=== PATIENT | female | born 1950 | race Caucasian/White ===

== ENCOUNTER → 2018-02-25 11:21 | Outpatient (CLI) | payer MEDICARE, OTHER, SELFPAY ==
--- NOTE | 2018-02-25 | DI.MG.S_ITS ---
BILATERAL DIGITAL SCREENING MAMMOGRAM 3D/2D WITH CAD: 02/25/2018 CLINICAL: Routine screening. Personal history of left breast cancer. Family history of breast cancer. Comparison is made to exams dated: 02/07/2017 mammogram, 02/05/2016 mammogram, and 01/13/2015 mammogram - [facility]. The tissue of both breasts is heterogeneously dense. This may lower the sensitivity of mammography. Current study was also evaluated with a Computer Aided Detection (CAD) system. There are benign post operative findings in the left breast. There also are benign calcifications in both breasts. No significant masses, calcifications, or other findings are seen in either breast. There has been no significant interval change. IMPRESSION: There is no mammographic evidence of malignancy. A 1 year screening mammogram is recommended. This exam was interpreted at Station ID: [id number]. NOTE: For mammograms, a report in lay terms will be sent to the patient. Approximately 15% of breast malignancies will not be visualized mammographically. In the management of a palpable breast mass, a negative mammogram must not discourage biopsy of a clinically suspicious lesion. Electronically Signed By: Karina lilly/barbara:02/25/2018 16:09:01 letter sent: Normal Exam ACR BI-RADS Category 2: Benign Finding(s) 3342F
== END ==
PROVIDERS: Family Provider Internal Medicine Hematology & Oncology; PCP Family Medicine; Visit Provider Family Medicine
DX: Z12.31 Encounter for screening mammogram for malignant neoplasm of breast (principal); Z85.3 Personal history of malignant neoplasm of breast; Z80.3 Family history of malignant neoplasm of breast
CPT/HCPCS: 77063; 77067

== ENCOUNTER → 2018-05-14 11:53 | Outpatient (CLI) | payer MEDICARE, OTHER, SELFPAY ==
--- NOTE | 2018-05-14 | DI.RAD.S_ITS ---
PROCEDURE: XR RIBS BI MIN 4V W CXR1V INDICATIONS: LUNG CANCER,BREAST CANCER,BACK PAIN TECHNIQUE: 4 views of the bilateral ribs were acquired, along with a single view chest. COMPARISON: None. FINDINGS: Surgical changes and devices: Surgical clips are seen in left axilla and in right infrahilar region. Bones and chest wall: No obvious displaced rib fractures or dislocations. No suspicious bony lesions. Overlying soft tissues appear unremarkable. Lungs and pleura: Elevation of right hemidiaphragm is seen with suggestion of small right pleural effusion and right basilar atelectasis. No gross pneumothorax. Mediastinum: Mediastinal contours appear normal. Heart size is normal. IMPRESSION: Elevation of right hemidiaphragm and small right pleural effusion. Post surgical changes in bilateral lower lung baez. No obvious rib deformity is seen. Dictated by: Jayce Wagner M.D. on 05/14/2018 12:32 Approved by: Jayce Wagner M.D. on 05/14/2018 at 12:36
== END ==
PROVIDERS: PCP Family Medicine; Visit Provider Family Medicine
DX: C50.919 Malignant neoplasm of unspecified site of unspecified female breast (principal); C34.90 Malignant neoplasm of unspecified part of unspecified bronchus or lung; J90 Pleural effusion, not elsewhere classified; M54.9 Dorsalgia, unspecified
CPT/HCPCS: 71111

== ENCOUNTER → 2019-03-15 14:24 | Outpatient (CLI) | payer MEDICARE, OTHER, SELFPAY ==
--- NOTE | 2019-03-15 | DI.MG.S_ITS ---
BILATERAL DIGITAL SCREENING MAMMOGRAM 3D/2D WITH CAD POST LUMPECTOMY: 03/15/2019 CLINICAL: Routine screening. Personal history of left breast cancer. Family history of breast cancer. Comparison is made to exams dated: 02/25/2018 mammogram, 02/07/2017 mammogram, and 02/05/2016 mammogram - [facility]. The tissue of both breasts is heterogeneously dense. This may lower the sensitivity of mammography. Current study was also evaluated with a Computer Aided Detection (CAD) system. There are benign calcifications in both breasts. There also are benign post operative findings in the left breast. No significant masses, calcifications, or other findings are seen in either breast. There has been no significant interval change. IMPRESSION: There is no mammographic evidence of malignancy. A 1 year screening mammogram is recommended. This exam was interpreted at Station ID: [id number]. NOTE: For mammograms, a report in lay terms will be sent to the patient. Approximately 15% of breast malignancies will not be visualized mammographically. In the management of a palpable breast mass, a negative mammogram must not discourage biopsy of a clinically suspicious lesion. Electronically Signed By: Chris riley/barbara:03/15/2019 19:48:21 letter sent: Normal Exam ACR BI-RADS Category 2: Benign Finding(s) 3342F
== END ==
PROVIDERS: PCP Family Medicine; Visit Provider Family Medicine
DX: Z12.31 Encounter for screening mammogram for malignant neoplasm of breast (principal); Z85.3 Personal history of malignant neoplasm of breast; Z80.3 Family history of malignant neoplasm of breast
CPT/HCPCS: 77063; 77067

== ENCOUNTER → 2019-07-13 14:47 | Outpatient (CLI) | payer MEDICARE, OTHER, SELFPAY ==
--- NOTE | 2019-07-13 | DI.RAD.S_ITS ---
PROCEDURE: XR CHEST 2V INDICATIONS: LUNG PAIN/HISTORY OF LUNG CANCER/COUGH TECHNIQUE: 2 views of the chest were acquired. COMPARISON: [facility], , CT THORAX W/O CONTRAST, 11/10/2018, 9:47. [facility], CR, CHEST 1 VIEW, 11/24/2015, 10:37. [facility], , CHEST 2 VIEW, 08/02/2011, 9:16. FINDINGS: Surgical changes and devices: None. Lungs and pleura: Lungs are clear on the left but there is a persistence of elevation of the right hemidiaphragm, also seen on CT scan in 11/10/18. Mediastinum: Mediastinal contours are normal. Heart size is normal. Bones and chest wall: No suspicious bony abnormalities. Soft tissues appear unremarkable. IMPRESSION: Chronic elevation of the right hemidiaphragm, no source of chest pain is identified. Followup CT scanning may become necessary. Dictated by: Logan Toribio M.D. on 07/13/2019 at 15:09 Approved by: Logan Toribio M.D. on 07/13/2019 at 15:17
== END ==
PROVIDERS: PCP Family Medicine; Referring Provider Family Medicine; Visit Provider Family Medicine
DX: R05 Cough (principal); R07.9 Chest pain, unspecified; Z85.118 Personal history of other malignant neoplasm of bronchus and lung
CPT/HCPCS: 71046

== ENCOUNTER → 2019-08-25 14:03 | Outpatient (CLI) | payer MEDICARE, OTHER, SELFPAY ==
--- NOTE | 2019-08-25 | DI.US.S_ITS ---
LIMITED ULTRASOUND OF LEFT BREAST: 08/25/2019 CLINICAL: Palpable left breast lump. Comparison is made to exams dated: 08/25/2019 mammogram, 03/15/2019 mammogram, 02/25/2018 mammogram, 02/07/2017 mammogram, and 02/05/2016 mammogram - [facility]. Color flow and real-time ultrasound of the left breast upper outer quadrant were performed on the areas of interest. [place] scale images of the real-time examination were reviewed. There is a benign 0.9 cm x 0.8 cm x 0.7 cm oval mass in the left breast at 2 o'clock posterior depth. This irregular mass is hyperechoic with posterior acoustic shadowing. This correlates with mammography findings. There are diffuse calcifications within the mass. Color flow imaging demonstrates that there is no vascularity present. There also is a benign 1.3 cm x 1.6 cm oval mass with indistinct margins in the left breast at 2 o'clock posterior depth. This oval mass is hyperechoic with posterior acoustic shadowing. This correlates with mammography findings. There are diffuse calcifications within the mass. Color flow imaging demonstrates that there is no vascularity present. Additionally, there is an irregular post-surgical scar with an indistinct margin in the left breast at 3 o'clock middle depth lateral to the calcified masses. This indistinct region is hypoechoic with posterior acoustic shadowing and extends to the skin. . Color flow imaging demonstrates that there is no vascularity present. The findings are consistent with a post-surgical scar. IMPRESSION: BENIGN There is no sonographic evidence of malignancy. The 0.9 cm x 0.8 cm x 0.7 cm calcified mass in the left breast at 2 o'clock posterior depth is consistent with fat necrosis and is benign. The 1.3 cm x 1.6 cm oval calcified mass in the left breast at 2 o'clock posterior depth is consistent with fat necrosis and is benign. The irregular hypoechoic region of shadowing extending to the skin is consistent with a post-surgical scar in the left breast at 3 o'clock middle depth and is benign. Recommend clinical followup for palpable abnormality in the left breast. If clinical concern persists, further evalution may be obtained with an MRI. Return to screening mammogram is recommended. This exam was interpreted at Station ID: [id number]. Electronically Signed By: Esvin Wright M.D. ddp/:08/25/2019 15:51:04 letter sent: Clinical Evaluation Ultrasound BI-RADS: 2 Benign
--- NOTE | 2019-08-25 | DI.MG.S_ITS ---
UNILATERAL LEFT DIGITAL DIAGNOSTIC MAMMOGRAM 3D/2D POST LUMPECTOMY: 08/25/2019 CLINICAL: Left breast mass. Comparison is made to exams dated: 03/15/2019 mammogram, 02/25/2018 mammogram, and 02/07/2017 mammogram - [facility]. The tissue of left breast is heterogeneously dense. This may lower the sensitivity of mammography. There is a coarse dystrophic calcification in the left breast at 1 o'clock middle depth. This is not significantly changed and correlates with surgery. There are surgical clips, architectural distortion, a post-surgical scar, skin retraction, and trabecular thickening associated with the calcification. No other significant masses or calcifications are seen in the breast. IMPRESSION: INCOMPLETE: NEEDS ADDITIONAL IMAGING EVALUATION The coarse dystrophic calcification in the left breast associated with post-surgical changes is consistent with fat necrosis and is benign. There is no other abnormality seen in the left breast to correspond with the palpable abnormality in the upper outer quadrant, however, ultrasound is recommended. This exam was interpreted at Station ID: [id number]. NOTE: For mammograms, a report in lay terms will be sent to the patient. Approximately 15% of breast malignancies will not be visualized mammographically. In the management of a palpable breast mass, a negative mammogram must not discourage biopsy of a clinically suspicious lesion. Electronically Signed By: Esvin Wright M.D. ddp/:08/25/2019 14:47:06 ACR BI-RADS Category 0: Incomplete [id number]
== END ==
PROVIDERS: PCP Family Medicine; Visit Provider Internal Medicine
DX: R92.8 Other abnormal and inconclusive findings on diagnostic imaging of breast (principal); R92.1 Mammographic calcification found on diagnostic imaging of breast; N63.21 Unspecified lump in the left breast, upper outer quadrant
CPT/HCPCS: 76642; 77065; G0279

== ENCOUNTER → 2020-01-11 07:52 | Outpatient (CLI) | payer MEDICARE, OTHER, SELFPAY ==
--- NOTE | 2020-01-11 | DI.ECHO.S_ITS ---
[facility] +---------+ : : [address] : : : : [id number] : : : : Phone: [phone]+ Echocardiogram Report + + :Name: JAROD BROOKS Study Date: 01/11/2020 Height: 63 in : :[facility] Weight: 192 lb : : Gender: Female BSA: 1.9 m2 : :: 1950 Age: 69 yrs BP: 163/102 mmHg: :Reason For Study: HYPERTENSION : :Ordering Physician: LOKI, : :DUY Performed By: Oksana Corbin : :Referring: DUY MANJARREZ : + + Interpretation Summary The left ventricle is normal in size and wall thickness. The ejection fraction is estimated to be 55-60%. Diastolic parameters suggest a relaxation abnormality of the left ventricle, consistent with probable normal filling pressures. The right ventricle is not well visualized. The right ventricle is grossly normal size. The right ventricular systolic function is normal. The right ventricular systolic pressure is estimated to be at least 31 mmHg based on an estimated right atrial pressure of 3 mm Hg. The left atrium is mildly dilated. Right atrial size is normal. There is no significant valvular heart disease. The ascending aorta is mildly enlarged. Procedure: A two-dimensional transthoracic echocardiogram with color flow and Doppler was performed. The study quality was technically adequate. There is no prior echocardiogram noted for this patient. The patient was in sinus rhythm with heart rates between 69-71 bpm during the exam. Left Ventricle: The left ventricle is normal in size and wall thickness. The ejection fraction is estimated to be 55-60%. There are no focal wall motion abnormalities. Diastolic parameters suggest a relaxation abnormality of the left ventricle, consistent with probable normal filling pressures. Right Ventricle: The right ventricle is not well visualized. The right ventricle is grossly normal size. The right ventricular systolic function is normal. Atria: The left atrium is mildly dilated. Right atrial size is normal. There is no Doppler evidence for an interatrial shunt. Mitral Valve: The mitral valve leaflets appear mildly thickened, but open well. There is trace mitral regurgitation. Aortic Valve: The aortic valve is trileaflet. The aortic valve opens well. There is no aortic valve stenosis. No aortic regurgitation is present. Tricuspid Valve: The tricuspid valve is not well visualized, but is grossly normal. There is mild tricuspid regurgitation. The right ventricular systolic pressure is estimated to be at least 31 mmHg based on an estimated right atrial pressure of 3 mm Hg. Pulmonic Valve: The pulmonic valve leaflets are thin and pliable; valve motion is normal. There is mild pulmonic regurgitation. There is no significant valvular heart disease. Great Vessels: The aortic root is normal size. The ascending aorta is mildly enlarged. The IVC is of normal diameter and collapses greater than 50% with a sniff. This suggests a low right atrial pressure of 3 mm Hg. Pericardium/ Pleura There is no pericardial effusion. There is no pleural effusion. MMode/2D Measurements & Calculations LVIDd: 4.8 cm LVOT diam: 2.4 cm LVIDs: 3.4 cm Ao root diam: 3.9 cm FS: 29.4 % asc Aorta Diam: 3.9 cm EPSS: 1.5 cm Ao Arch Diam (Prox Trans): 3.0 cm IVSd: 1.0 cm LVPWd: 0.85 cm LV cooney. diameter/BSA (cm/m^2): 2.5 LV sys. diameter/BSA (cm/m^2): 1.8 LA A2 area: 30.6 cm2 RA long axis: 4.9 cm LA A4 area: 16.2 cm2 RA area: 11.9 cm2 LA length (vol): 5.3 cm RA vol: 24.6 ml LA vol: 79.4 ml RA : 12.9 ml/m2 LA vol index: 41.8 ml/m2 IVC diam: 0.98 cm TAPSE: 1.9 cm Doppler Measurements & Calculations Ao V2 max: 114.5 cm/sec LVOT Max Magdiel: 85.0 cm/sec Ao V2 mean: 77.5 cm/sec LV V1 max P.9 mmHg Ao max P.2 mmHg LV V1 VTI: 19.0 cm Ao mean P.7 mmHg HE(I,D): 4.0 cm2 Ao V2 VTI: 21.2 cm EH(V,D): 3.4 cm2 sev ratio: 0.89 HE indexed to BSA (cm^2/m^2): 2.1 MV E max magdiel: 50.7 cm/sec TR max magdiel: 263.6 cm/sec MV A max magdiel: 87.6 cm/sec TR max P.8 mmHg MV E/A: 0.58 PA V2 max: 59.2 cm/sec Med Peak E' Magdiel: 5.3 cm/sec PA V2 mean: 36.3 cm/sec E/E' med: 9.6 PA mean P.66 mmHg Lat Peak E' Magdiel: 7.6 cm/sec PA pr(Accel): 31.0 mmHg E/E' lat: 6.7 E/e' average: 8.1 MV dec time: 0.26 sec SV(LVOT): 85.9 ml Reading Physician:03:53 PM
== END ==
PROVIDERS: PCP Family Medicine; Referring Provider Family Medicine; Visit Provider Family Medicine
DX: I07.1 Rheumatic tricuspid insufficiency (principal); I37.1 Nonrheumatic pulmonary valve insufficiency; I77.89 Other specified disorders of arteries and arterioles; I10 Essential (primary) hypertension
CPT/HCPCS: 93306

== ENCOUNTER → 2020-03-16 10:48 | Outpatient (CLI) | payer MEDICARE, OTHER, SELFPAY ==
--- NOTE | 2020-03-16 | DI.MG.S_ITS ---
BILATERAL DIGITAL SCREENING MAMMOGRAM 3D/2D WITH CAD POST LUMPECTOMY: 03/16/2020 CLINICAL: Routine screening. Personal history of left breast cancer. Family history of breast cancer. Comparison is made to exams dated: 03/15/2019 mammogram, 02/25/2018 mammogram, and 02/07/2017 mammogram - [facility]. The tissue of both breasts is heterogeneously dense. This may lower the sensitivity of mammography. Current study was also evaluated with a Computer Aided Detection (CAD) system. There are benign calcifications in the left breast. There also are benign post operative findings in the left breast. No significant masses, calcifications, or other findings are seen in either breast. There has been no significant interval change. IMPRESSION: BENIGN There is no mammographic evidence of malignancy. A 1 year screening mammogram is recommended. This exam was interpreted at Station ID: [id number]. NOTE: For mammograms, a report in lay terms will be sent to the patient. Approximately 15% of breast malignancies will not be visualized mammographically. In the management of a palpable breast mass, a negative mammogram must not discourage biopsy of a clinically suspicious lesion. Electronically Signed By: Karina lilly/barbara:03/16/2020 11:37:00 copy to: Joni Gooden letter sent: Normal Exam ACR BI-RADS Category 2: Benign Finding(s) 3342F
== END ==
PROVIDERS: Referring Provider Internal Medicine; Visit Provider Internal Medicine
DX: Z12.31 Encounter for screening mammogram for malignant neoplasm of breast (principal); Z85.3 Personal history of malignant neoplasm of breast; Z80.3 Family history of malignant neoplasm of breast
CPT/HCPCS: 77063; 77067

== ENCOUNTER → 2020-12-07 09:25 | Outpatient (CLI) | payer MEDICARE, OTHER, SELFPAY | PROVIDERS: PCP Family Medicine; Referring Provider Family Medicine; Visit Provider Family Medicine | DX: R10.9 Unspecified abdominal pain (principal); Z53.8 Procedure and treatment not carried out for other reasons ==

== ENCOUNTER → 2020-12-14 08:44 | Outpatient (CLI) | payer MEDICARE, OTHER, SELFPAY ==
--- NOTE | 2020-12-14 | DI.US.S_ITS ---
PROCEDURE: US ABDOMEN COMPLETE INDICATIONS: PAIN TECHNIQUE: Real-time scanning was performed of the abdominal and retroperitoneal organs, with image documentation. COMPARISON: None. FINDINGS: Liver: Liver is normal in size and homogeneous in echotexture. Gallbladder: No findings of gallstones or sludge are seen. The gallbladder wall is not thickened, measuring 3 mm or less. No specific pericholecystic fluid is seen. The sonographic Hernandez sign is negative. Biliary ducts: Intrahepatic bile ducts are non-dilated. Extrahepatic bile duct caliber measures 4 mm. Normal is 6-7 mm or less in diameter, or 10 mm or less post-cholecystectomy. Pancreas: Not seen. Spleen: Spleen is normal in size and homogeneous in echotexture. Kidneys: Kidneys are normal in size and echotexture. Right kidney measures 9.6 cm long; left kidney measures 10.3 cm long. No hydronephrosis or nephrolithiasis. No solid masses. Aorta: Visualized aorta is normal in caliber at less than 3 cm. Iliacs: Proximal common iliac arteries are normal in caliber at less than 2.5 cm. IVC: Intrahepatic inferior vena cava is patent. Miscellaneous: No free abdominal fluid. This study is limited by body habitus and bowel gas. IMPRESSION: Limited ultrasound, without a significant abnormality identified. Dictated by: Varun Alejandra M.D. on 12/14/2020 at 10:14 Approved by: Varun Alejandra M.D. on 12/14/2020 at 10:16
== END ==
PROVIDERS: PCP Family Medicine; Referring Provider Family Medicine; Visit Provider Family Medicine
DX: R10.9 Unspecified abdominal pain (principal)
CPT/HCPCS: 76700

== ENCOUNTER → 2021-01-01 10:48 | Outpatient (CLI) | payer MEDICARE, OTHER, SELFPAY ==
--- NOTE | 2021-01-01 | DI.CT.S_ITS ---
PROCEDURE: CT ABDOMEN PELVIS W CON INDICATIONS: Unspecified abdominal pain/lab TECHNIQUE: After the administration of oral and intravenous contrast, axial sections were acquired from the lung bases to the pubic symphysis. Coronal and sagittal reformats were performed. For radiation dose reduction, the following was used: automated exposure control, adjustment of mA and/or kV according to patient size. COMPARISON:[facility], RG, CT THORAX W/O CONTRAST, 11/10/2018, 9:47. [facility], CT, ABDOMEN/PELVIS WITH CONTRAST, 07/25/2015, 0:56. FINDINGS: Image quality: Excellent. Lung bases: Postsurgical change, status post remote right lower lobectomy. Calcified right infrahilar and hilar lymph nodes consistent with chronic granulomatous disease. Heart: No significant findings. ABDOMEN: Liver: Unremarkable. Gallbladder: Unremarkable. Biliary ducts: Unremarkable. Pancreas: Unremarkable. Spleen: Unremarkable. Adrenal Glands: Unremarkable. Kidneys and Ureters: Unremarkable. Stomach and Bowel: No dilated loops. Mobile cecum with question thickening in the region of the cecum and proximal ascending colon versus incomplete distention. Normal appendix. Diffuse sigmoid diverticulosis without evidence of diverticulitis. Peritoneum: No abnormal intraperitoneal fluid. No free air. Ventral Wall: Tiny midline ventral wall hernia containing fat approximately 4 cm above the umbilicus. Abdominal Nodes: No retroperitoneal or mesenteric adenopathy by size criteria. Vessels: Aorta and inferior vena cava are normal in size. PELVIS: Pelvic Organs: Uterus is surgically absent. Otherwise unremarkable. Bladder: Unremarkable. Pelvic Nodes: No enlarged lymph nodes. Miscellaneous: No inguinal hernias are seen. Bones: Lumbar degenerative change. Scoliotic curvature. No lytic or blastic bony lesions. Canal stenosis at L4-L5. IMPRESSION: 1. Mobile cecum. Question focal bowel wall thickening in the region of the Cecum and proximal ascending colon versus incomplete distention. 2. No evidence of acute abdominal process. 3. Sigmoid diverticulosis. 4. Tiny ventral hernia containing fat. 5. Lumbar scoliotic curvature and degenerative change. Canal stenosis at L4-L5. 6. Remote right lower lobectomy. No evidence of metastatic disease in the abdomen and pelvis. Dictated by: Tomas Taylor M.D. on 01/01/2021 at 14:58 Approved by: Tomas Taylor M.D. on 01/01/2021 at 15:17
[2021-01-01 11:35] LABS: BUN Creatinine Ratio 18.8 (6-22); Blood Urea Nitrogen 9 mg/dL (7-17); Estimated Glomerular Filt Rate > 60.0 mL/min (>60)
== END ==
PROVIDERS: PCP Family Medicine; Referring Provider Family Medicine; Visit Provider Family Medicine
DX: C50.919 Malignant neoplasm of unspecified site of unspecified female breast (principal); C34.90 Malignant neoplasm of unspecified part of unspecified bronchus or lung; R10.9 Unspecified abdominal pain; K57.30 Diverticulosis of large intestine without perforation or abscess without bleeding; M48.061 Spinal stenosis, lumbar region without neurogenic claudication; M47.816 Spondylosis without myelopathy or radiculopathy, lumbar region; M41.9 Scoliosis, unspecified
CPT/HCPCS: 36415; 74177; 82565; 84520; Q9967

== ENCOUNTER → 2021-04-25 13:31 | Outpatient (CLI) | payer MEDICARE, OTHER, SELFPAY ==
--- NOTE | 2021-04-25 | DI.MG.S_ITS ---
BILATERAL DIGITAL SCREENING MAMMOGRAM 3D/2D WITH CAD POST LUMPECTOMY: 04/25/2021 CLINICAL: Routine screening. Personal history of left breast cancer. Family history of breast cancer. Comparison is made to exams dated: 03/16/2020 mammogram, 03/15/2019 mammogram, and 02/25/2018 mammogram - [facility]. The tissue of both breasts is heterogeneously dense. This may lower the sensitivity of mammography. Current study was also evaluated with a Computer Aided Detection (CAD) system. There are stable benign calcifications in both breasts. There also are benign post operative findings in the left breast. No significant masses, calcifications, or other findings are seen in either breast. There has been no significant interval change. IMPRESSION: BENIGN There is no mammographic evidence of malignancy. A 1 year screening mammogram is recommended. This exam was interpreted at Station ID: [id number]. NOTE: For mammograms, a report in lay terms will be sent to the patient. Approximately 15% of breast malignancies will not be visualized mammographically. In the management of a palpable breast mass, a negative mammogram must not discourage biopsy of a clinically suspicious lesion. Electronically Signed By: Bob Davies acr/penrad:04/25/2021 14:11:16 copy to: Andrea Gonzalez letter sent: Normal Exam ACR BI-RADS Category 2: Benign Finding(s) 3342F
== END ==
PROVIDERS: PCP Family Medicine; Referring Provider Family Medicine; Visit Provider Family Medicine
DX: Z12.31 Encounter for screening mammogram for malignant neoplasm of breast (principal)
CPT/HCPCS: 77063; 77067

== ENCOUNTER → 2021-07-11 10:28 | Outpatient (CLI) | payer MEDICARE, OTHER, SELFPAY ==
--- NOTE | 2021-07-11 | DI.CT.S_ITS ---
PROCEDURE: CT CHEST HIGH RESOLUTION INDICATIONS: POST LOBECTOMY TECHNIQUE: Noncontrast 1.0 and 5.0 mm thick contiguous axial sections from the pulmonary apex to the posterior costophrenic angles, with 7 mm thick coronal and sagittal MIP reformats. 1 mm thick dynamic expiratory images acquired through the upper, mid, and lower lungs. 1.0 mm thick axial sections acquired from the maday to the posterior costophrenic angles in the prone end-inspiration position. For radiation dose reduction, the following was used: automated exposure control, adjustment of mA and/or kV according to patient size. COMPARISON: [facility], , THYROID, 07/04/2016, 14:02. [facility], , CT THORAX W/O CONTRAST, 11/10/2018, 9:47. FINDINGS: Image quality: Excellent. Lungs: Stable postsurgical changes from right lower lobectomy. Focal scarring and bronchiectasis are seen in the anterior left upper lobe adjacent to the chest wall, possibly related to prior radiation changes. No signs of interstitial lung disease. A few small calcified granulomas are seen in the right lung. No suspicious pulmonary nodule. Chronic elevation of the right hemidiaphragm is redemonstrated. Pleura: No pleural effusions or pneumothorax. Mediastinum: No significant mediastinal lymphadenopathy. Heart size is normal. No pericardial effusion. Thoracic aorta and central pulmonary arteries are normal in size. Esophagus is normal in caliber. Bones and chest wall: Postsurgical changes are seen in the left breast and left axilla. No suspicious bony lesions. No vertebral body compression fractures. Large heterogeneous thyroid nodule is better characterized on the prior thyroid ultrasound from 07/04/2016. Abdomen: Visualized upper abdominal solid organs and bowel loops appear normal. IMPRESSION: 1. Stable postsurgical changes from right lower lobectomy. No suspicious pulmonary nodule. 2. Mild scarring in the anterior left upper lobe is most likely secondary to prior radiation changes. No signs of interstitial lung disease. 3. No significant thoracic lymphadenopathy. 4. Thyroid nodules are better characterized on the prior thyroid ultrasound from 07/04/2016. Dictated by: Jack Dolan M.D. on 07/11/2021 at 12:08 Approved by: Jack Dolan M.D. on 07/11/2021 at 12:27
== END ==
PROVIDERS: PCP Family Medicine; Referring Provider Internal Medicine; Visit Provider Internal Medicine
DX: Z90.2 Acquired absence of lung [part of] (principal); Z09 Encounter for follow-up examination after completed treatment for conditions other than malignant neoplasm; E04.2 Nontoxic multinodular goiter; J98.4 Other disorders of lung
CPT/HCPCS: 71250

== ENCOUNTER 2021-09-22 11:00 | Emergency (ER) | payer MEDICARE, OTHER, SELFPAY ==
[2021-09-22] VITALS (19 sets, daily range): BP systolic 139–176; BP diastolic 81–100; PULSE 78–90; RESP 18–20; TEMP 36.9; O2SAT 96–100; BMI 30.5
[2021-09-22 11:28] LABS: Add Manual Diff / Slide Review NO; Basophils Absolute Auto 0 /uL (0-100); Basophils Percent Auto 0.7 % (0-2); Eosinophils Absolute Auto 200 /uL (0-450); Eosinophils Percent Auto 2.9 % (2-4); Hematocrit 34.3 % (36-46); Hemoglobin 11.8 g/dL (12.0-16.0); Lymphocytes Absolute Auto 1400 /uL (1100-4500); Lymphocytes Percent Auto 24.4 % (25-40); Mean Corpuscular HGB Conc 34.5 % (30-36); Mean Corpuscular Hemoglobin 32.2 PG (26-34); Mean Corpuscular Volume 93.4 fL (80-100); Monocytes Absolute Auto 500 /uL (0-900); Neutrophils Absolute Auto 3600 /uL (1500-7000); Platelet Count 273 X10^3/uL (150-400); Red Blood Cell Count 3.68 X10^6/uL (4.0-5.2); Red Cell Distribution Width 13.2 % (11.6-14.8); White Blood Cell Count 5.7 X10^3/uL (4.5-11.0)
[2021-09-22] MEDS: LIDO 1%/SOD BICARB 8.4% (10ML) 10 ML SYRINGE INJ (11:28)
[2021-09-22] MEDS: ONDANSETRON 4 MG/2 ML INJ (11:28)
[2021-09-22] MEDS: TRANEXAMIC ACID 1,000 MG VIAL 500 MG TOP (11:35)
[2021-09-22 11:38] LABS: INR 1.1 (0.9-1.3)
--- NOTE | 2021-09-22 11:40 | DI.CT.S_ITS ---
PROCEDURE: CT FACIAL BONES WO CON INDICATIONS: fall, facial lac, dental pain TECHNIQUE: Noncontrast 2.5 mm thick axial images acquired from the mandible through the frontal sinuses, with coronal and sagittal reformatting. For radiation dose reduction, the following was used: automated exposure control, adjustment of mA and/or kV according to patient size. COMPARISON: None. FINDINGS: Image quality: Excellent. Bones and teeth: Orbital ghosh are intact. Sinus ghosh show no fracture or deformity. Nasal bones and septum are intact. Visualized portions of the mandible demonstrate no fractures or subluxation. Zygomatic arches are intact. Pterygoid plates are intact. Visualized portions of the skull base and auditory canals are intact. Right mandibular bicuspid periodontal disease erodes the buccal cortex Sinuses: Paranasal sinuses are aerated, without fluid levels, mucosal thickening, or mucoceles. Mastoid air cells are aerated. Soft tissues: Right mandibular lip soft tissue swelling. No radiopaque foreign body. Vascular: Visualized vascular structures appear normal in the absence of contrast. Bony vascular foramina and canals are intact. IMPRESSION: 1. Right mandibular lip soft tissue swelling without radiopaque foreign body or facial fracture 2. Right mandibular bicuspid periodontal disease with erosion of the buccal cortex. Recommend dental consult Approved by: Abhinav Gordon M.D. on 09/22/2021 at 11:37
--- NOTE | 2021-09-22 11:40 | DI.CT.S_ITS ---
PROCEDURE: CT HEAD/BRAIN WO CON INDICATIONS: fall, head injury TECHNIQUE: Noncontrast 5 mm thick angled axial sections acquired from the foramen magnum to the vertex, with coronal and sagittal reformats. For radiation dose reduction, the following was used: automated exposure control, adjustment of mA and/or kV according to patient size. COMPARISON: [facility], CT, HEAD WITHOUT CONTRAST, 01/02/2012, 20:40. FINDINGS: Image quality: Excellent. CSF spaces: Basal cisterns are patent. No extra-axial fluid collections. Ventricles are normal in size and shape. Brain: No midline shift. There is a a thin subdural hematoma layering over the left tentorium measuring up to 5 mm in thickness. [place]-white matter interface is normal. Moderate cerebral and cerebellar volume loss with multifocal white matter chronic ischemic change noted. Moderate calcified atherosclerotic plaque noted involving the cavernous portions of both internal carotid arteries. Skull and face: Calvarium and visualized facial bones are intact, without suspicious lesions. Sinuses: Visualized sinuses and mastoids are clear. IMPRESSION: Thin 5 mm left tentorial subdural hematoma. No mass effect or midline shift Atrophy and chronic ischemic change Note: Critical results were discussed with Dr. Carty at 11:31 AM [place] time on 09/22/21 Approved by: Abhinav Gordon M.D. on 09/22/2021 at 11:32
[2021-09-22 11:41] LABS: PTT Partial Thromboplastin Tim 37 SECONDS (26.4-36.2)
--- NOTE | 2021-09-22 11:41 | ED.WOUNDLAC ---
HPI - Wound/Laceration <Shavon Carty DO - Last Filed: 09/22/21 20:47> General Chief Complaint: Wound/Laceration Stated Complaint: Fell, bleeding from mouth Time Seen by Provider: 09/22/21 11:04 Source: patient Mode of arrival: Ambulatory Limitations: no limitations History of Present Illness HPI narrative: This is a 71-year-old female with history of prior lung cancer with right lower lobectomy, breast cancer on letrozole and metoprolol for hypertension. She Comes emergency department after ground level mechanical fall. Patient states that she thought her teeth for pushed in. She started having bleeding this happened about an hour to 45 minutes prior to arrival had persistent bleeding and then large clots which have not stopped. Patient took an aspirin today but does not take it every day. She denies loss of consciousness, she denies neck or back pain, she denies chest pain or shortness of breath. No nausea or vomiting. No other GI or urinary symptoms. She denies allergies to medications. She is accompanied by her today. Tetanus is up-to-date according to patient. Related Data Home Medications Medication Instructions Recorded Confirmed acyclovir 400 mg tablet 400 mg PO 5XD PRN ##0 10/21/11 06/17/19 Metoprolol Succinate (METOPROLOL 50 mg PO BID ##0 06/17/19 XL) hydrocodone 5 mg-acetaminophen 325 1 tab PO BID PRN 06/17/19 06/17/19 mg tablet letrozole PO 06/17/19 06/17/19 Allergies Allergy/AdvReac Type Severity Reaction Status Date / Time No Known Drug Allergies Allergy Unverified 06/17/19 16:26 Review of Systems <DO Cait Aguero Last Filed: 09/22/21 20:47> Review of Systems ROS Unobtainable: All systems reviewed & are unremarkable except as noted in HPI and below Patient History <DO Cait Aguero Last Filed: 09/22/21 20:47> Surgical History Status post breast lumpectomy Social History Smoking Status: Never smoker Smoking Status: Never smoker Exam <DO Cait Aguero Last Filed: 09/22/21 20:47> Narrative Exam Narrative: GEN: well nourished, well appearing female, alert and oriented x 3, patient appears to be in moderate distress. HEENT: Atraumatic except for right upper lip, see below, pupils are equal round reactive to light, extraocular movements are intact, nares are clear, TMs are clear with no fluid, there is no conjunctival pallor. Throat is clear without any exudates, erythema, tonsillar enlargement or uvular deviation, patient has a small chip of tooth #9 which patient states is and implant. Otherwise appear stable. Patient has an avulsion laceration of the right upper lip through and through with active pulsatile bleeding. Laceration is within a couple mm of vermilion border but does not appear to cross over. Able to stop it with direct pressure the patient put out about 150 mL and to suction canister and orally while evaluating. Patient does not have any other bony tenderness. No other lacerations or cuts are appreciated within the mouth or oropharynx. HEART: Regular rate and rhythm without murmur, clicks, rubs. No carotid bruits, pulses are equal in upper and lower extremities LUNGS:Lungs clear to auscultation, no wheezes, rales, crackles, chest moves symmetrically ABD:bowel sounds normal, soft, non-tender, no guarding, rebound, rigidity, no masses noted, no hepatosplenomegaly MSCL: Non-tender, no muscle atrophy, muscles strength 5/5 upper and lower extremities, full range of motion, normal gait NEURO:CN 2-12 intact, sensation normal Initial Vital Signs Initial Vital Signs: Vital Signs Temperature 98.5 F 09/22/21 11:02 Pulse Rate 85 09/22/21 11:02 Respiratory Rate 20 09/22/21 11:02 Blood Pressure 159/90 H 09/22/21 11:02 Pulse Oximetry 98 09/22/21 11:02 Oxygen Delivery Method 09/22/21 11:02 <Gwendolyn Sampson, DO - Last Filed: 09/23/21 04:46> Initial Vital Signs Initial Vital Signs: Vital Signs Temperature 98.5 F 09/22/21 11:02 Pulse Rate 85 09/22/21 11:02 Respiratory Rate 20 09/22/21 11:02 Blood Pressure 159/90 H 09/22/21 11:02 Pulse Oximetry 98 09/22/21 11:02 Oxygen Delivery Method 09/22/21 11:02 Procedures <Shavon Carty DO - Last Filed: 09/22/21 20:47> Laceration Repair Laceration 1: Site: lip (right upper) Side (If applicable): right Size (cm): 2.1 Description: stellate, flap and irregular Depth: simple, single layer Local Anesthetic: lidocaine 1% and with epi Amount of anesthesia used (mL): 4 Pre-repair: wound explored and deep structures intact Skin layer closed with: vicryl Skin layer suture size: 5-0 Number of sutures: 7 Technique: simple, interrupted Course <Shavon Carty DO - Last Filed: 09/22/21 20:47> Orders Ordered: Discontinued Medications Lidocaine/Epinephrine (Lidocaine 1% W/Epi) 4 ml INJ INTRA-OP ONE Stop: 09/22/21 11:14 Last Admin: 09/22/21 16:12 Dose: Not Given Documented By: AT Lidocaine/Sodium Bicarbonate (Lido 1%/Sod Bicarb 8.4% (10ml) 10 Ml Syringe) 10 ml INJ NOW ONE Stop: 09/22/21 11:12 Last Admin: 09/22/21 11:28 Dose: 10 ml Documented By: RLS Tranexamic Acid (Tranexamic Acid 1,000 Mg Vial) 500 mg TOP NOW ONE Stop: 09/22/21 11:43 Last Admin: 09/22/21 11:35 Dose: 500 mg Documented By: AT Reevaluation(s) Reevaluation #1: bleeding has stopped. Time: 11:57 Reevaluation #2: On recheck patient's bleeding continues to be stopped, head CT does show a 5 mm subdural this was relayed to the patient she does admit to headache, she has had some increasing bruising or cheek. She describes some mild discomfort over the neck but still normal range of motion but in light of her CT findings C-spine was included as well as chest x-ray. Time: 13:26 Consultations Consultation #1: Roselyn, coordinator. Awaiting callback from neurosurgery. Spoke with Dr. Kieth. Recommends repeat CT 4 hours from 1st if no change can DC home if there is change please re-contact if significant change quickly or neurologic changes come back. Time: 13:47 Consultation #2: Awaiting call back patient CT had a 1 mm change from 5 mm to 6. No additional neurologic changes. Dr. Keith called back and spoke with Dr. Sampson. Within limits and and 3rd CT had been repeated by Dr Sampson and is stable. Time: 19:04 Vital Signs Vital signs: Vital Signs - 8 hr 09/22/21 12:49 09/22/21 13:01 09/22/21 13:02 Pulse Rate 86 90 Respiratory Rate Blood Pressure 176/100 H Pulse Oximetry 100 98 Oxygen Delivery Method 09/22/21 13:02 09/22/21 13:30 09/22/21 13:30 Pulse Rate 87 85 Respiratory Rate Blood Pressure 157/97 H Pulse Oximetry 99 99 Oxygen Delivery Method Room Air Room Air 09/22/21 14:00 09/22/21 14:00 09/22/21 14:30 Pulse Rate 85 86 Respiratory Rate Blood Pressure 157/96 H Pulse Oximetry 99 99 Oxygen Delivery Method Room Air 09/22/21 15:00 09/22/21 15:08 09/22/21 15:08 Pulse Rate 85 87 Respiratory Rate Blood Pressure 164/86 H Pulse Oximetry 99 97 Oxygen Delivery Method Room Air 09/22/21 15:30 09/22/21 16:00 09/22/21 16:30 Pulse Rate 84 85 85 Respiratory Rate Blood Pressure Pulse Oximetry 99 99 99 Oxygen Delivery Method Room Air 09/22/21 18:30 09/22/21 18:11 09/22/21 18:11 Pulse Rate 78 84 Respiratory Rate 20 Blood Pressure 145/86 H 145/86 H Pulse Oximetry 100 96 Oxygen Delivery Method Room Air 09/22/21 18:30 09/22/21 19:00 09/22/21 19:30 Pulse Rate 80 80 79 Respiratory Rate Blood Pressure Pulse Oximetry 99 99 99 Oxygen Delivery Method Room Air 09/22/21 20:00 09/22/21 20:30 09/22/21 20:37 Pulse Rate 84 81 78 Respiratory Rate 18 Blood Pressure 139/81 Pulse Oximetry 99 100 99 Oxygen Delivery Method Room Air <Gwendolyn Sampson, DO - Last Filed: 09/23/21 04:46> Orders Ordered: Discontinued Medications Lidocaine/Epinephrine (Lidocaine 1% W/Epi) 4 ml INJ INTRA-OP ONE Stop: 09/22/21 11:14 Last Admin: 09/22/21 16:12 Dose: Not Given Documented By: AT Lidocaine/Sodium Bicarbonate (Lido 1%/Sod Bicarb 8.4% (10ml) 10 Ml Syringe) 10 ml INJ NOW ONE Stop: 09/22/21 11:12 Last Admin: 09/22/21 11:28 Dose: 10 ml Documented By: RLS Tranexamic Acid (Tranexamic Acid 1,000 Mg Vial) 500 mg TOP NOW ONE Stop: 09/22/21 11:43 Last Admin: 09/22/21 11:35 Dose: 500 mg Documented By: AT Vital Signs Vital signs: Vital Signs - 8 hr 09/22/21 12:49 09/22/21 13:01 09/22/21 13:02 Pulse Rate 86 90 Respiratory Rate Blood Pressure 176/100 H Pulse Oximetry 100 98 Oxygen Delivery Method 09/22/21 13:02 09/22/21 13:30 09/22/21 13:30 Pulse Rate 87 85 Respiratory Rate Blood Pressure 157/97 H Pulse Oximetry 99 99 Oxygen Delivery Method Room Air Room Air 09/22/21 14:00 09/22/21 14:00 09/22/21 14:30 Pulse Rate 85 86 Respiratory Rate Blood Pressure 157/96 H Pulse Oximetry 99 99 Oxygen Delivery Method Room Air 09/22/21 15:00 09/22/21 15:08 09/22/21 15:08 Pulse Rate 85 87 Respiratory Rate Blood Pressure 164/86 H Pulse Oximetry 99 97 Oxygen Delivery Method Room Air 09/22/21 15:30 09/22/21 16:00 09/22/21 16:30 Pulse Rate 84 85 85 Respiratory Rate Blood Pressure Pulse Oximetry 99 99 99 Oxygen Delivery Method Room Air 09/22/21 18:30 09/22/21 18:11 09/22/21 18:11 Pulse Rate 78 84 Respiratory Rate 20 Blood Pressure 145/86 H 145/86 H Pulse Oximetry 100 96 Oxygen Delivery Method Room Air 09/22/21 18:30 09/22/21 19:00 09/22/21 19:30 Pulse Rate 80 80 79 Respiratory Rate Blood Pressure Pulse Oximetry 99 99 99 Oxygen Delivery Method Room Air 09/22/21 20:00 09/22/21 20:30 09/22/21 20:37 Pulse Rate 84 81 78 Respiratory Rate 18 Blood Pressure 139/81 Pulse Oximetry 99 100 99 Oxygen Delivery Method Room Air MDM - Wound/Laceration <Shavon Carty, DO - Last Filed: 09/22/21 20:47> Lab Data Result diagrams: 09/22/21 11:11 09/22/21 11:11 Labs: Lab Results 09/22/21 09/22/21 09/22/21 Range/Units 11:11 11:11 11:11 WBC 5.7 (4.5-11.0) X10^3/uL RBC 3.68 L (4.0-5.2) X10^6/uL Hgb 11.8 L (12.0-16.0) g/dL Hct 34.3 L (36-46) % MCV 93.4 (80-100) fL MCH 32.2 (26-34) PG MCHC 34.5 (30-36) % RDW 13.2 (11.6-14.8) % Plt Count 273 (150-400) X10^3/uL Neut % (Auto) 64.0 (50-75) % Lymph % (Auto) 24.4 L (25-40) % [place] % (Auto) 8.0 (3-14) % Eos % (Auto) 2.9 (2-4) % Baso % (Auto) 0.7 (0-2) % Neut # (Auto) 3600 (9027-0326) /uL Lymph # (Auto) 1400 (3541-6818) /uL [place] # (Auto) 500 (0-900) /uL Eos # (Auto) 200 (0-450) /uL Baso # (Auto) 0 (0-100) /uL PT 12.0 (10.1-12.7) SECONDS INR 1.1 (0.9-1.3) APTT 37 H (26.4-36.2) SECONDS Sodium 131 L (137-145) mmol/L Potassium 3.9 (3.4-5.1) mmol/L Chloride 98 (98-107) mmol/L Carbon Dioxide 26 (22-32) mmol/L BUN 9 (7-17) mg/dL Creatinine 0.54 (0.52-1.04) mg/dL Estimated GFR > 60 (>60) mL/min BUN/Creatinine Ratio 16.7 (6-22) Glucose 110 (80-110) mg/dL Calcium 8.7 (8.4-10.2) mg/dL Total Bilirubin 0.6 (0.2-1.3) mg/dL AST 38 H (14-36) IU/L ALT 22 (<35) IU/L Alkaline Phosphatase 124 (38-126) U/L Total Protein 7.6 (6.3-8.2) g/dL Albumin 4.4 (3.5-5.0) g/dL Globulin 3.2 (1.7-4.1) g/dL Albumin/Globulin Ratio 1.4 (1.0-2.8) SARS-CoV-2 (PCR) (Negative) Blood Type Antibody Screen Crossmatch 09/22/21 09/22/21 Range/Units 11:25 12:54 WBC (4.5-11.0) X10^3/uL RBC (4.0-5.2) X10^6/uL Hgb (12.0-16.0) g/dL Hct (36-46) % MCV (80-100) fL MCH (26-34) PG MCHC (30-36) % RDW (11.6-14.8) % Plt Count (150-400) X10^3/uL Neut % (Auto) (50-75) % Lymph % (Auto) (25-40) % [place] % (Auto) (3-14) % Eos % (Auto) (2-4) % Baso % (Auto) (0-2) % Neut # (Auto) (9654-6291) /uL Lymph # (Auto) (7422-7626) /uL [place] # (Auto) (0-900) /uL Eos # (Auto) (0-450) /uL Baso # (Auto) (0-100) /uL PT (10.1-12.7) SECONDS INR (0.9-1.3) APTT (26.4-36.2) SECONDS Sodium (137-145) mmol/L Potassium (3.4-5.1) mmol/L Chloride (98-107) mmol/L Carbon Dioxide (22-32) mmol/L BUN (7-17) mg/dL Creatinine (0.52-1.04) mg/dL Estimated GFR (>60) mL/min BUN/Creatinine Ratio (6-22) Glucose (80-110) mg/dL Calcium (8.4-10.2) mg/dL Total Bilirubin (0.2-1.3) mg/dL AST (14-36) IU/L ALT (<35) IU/L Alkaline Phosphatase (38-126) U/L Total Protein (6.3-8.2) g/dL Albumin (3.5-5.0) g/dL Globulin (1.7-4.1) g/dL Albumin/Globulin Ratio (1.0-2.8) SARS-CoV-2 (PCR) Negative (Negative) Blood Type O Positive Antibody Screen Negative Crossmatch See Detail Imaging Data CT scan - head: Radiologist's Impression: Close Chest X-Ray (Signed) EvanAbhinav - 09/22/[address] (Signed) Gordon,Abhinav - 09/22/[address] (Signed) Gordon,Abhinav - 09/22/[address] (Signed) Gordon,Abhinav - 09/22/[address] (Signed) Jack Dolan - 07/11/21 Mammogram Screening (Signed) Bob Davies - 04/25/21 Abdomen/Pelvis CT (Signed) Tomas Taylor - 01/01/21 Abdomen Ultrasound (Signed) Varun Alejandra - 12/14/20 Mammogram Screening (Signed) Karina Mendez - 03/16/20 Echocardiogram Ultrasound (Signed) Marquez Jones - 01/11/20 Mammogram Diagnostic (Signed) Esvin Wright - 08/25/19 Breast Ultrasound (Signed) Esvin Wright - 08/25/19 Chest X-Ray (Signed) Logan Toribio - 07/13/19 Mammogram Screening (Signed) Chris Sommers - 03/15/19 Ribs w/Chest X-Ray (Signed) Jayce Wagner - 05/14/18 Mammogram Screening (Signed) Karina Mendez - 02/25/[address] [address] [address] Scan Report Signed Patient: Kelly Benitez MR#: [id number] : 1950 Acct:[id number] Age/Sex: 71 / F Date of Service: 09/22/21 Loc: ED Accession Number: [id number] ?? Procedure: CT head/brain wo con Ordering Provider: Shavon Carty D.O. PROCEDURE:? CT HEAD/BRAIN WO CON ? INDICATIONS:? fall, head injury ? TECHNIQUE:? Noncontrast 5 mm thick angled axial sections acquired from the foramen magnum to the vertex, with coronal and sagittal reformats.? For radiation dose reduction, the following was used:? automated exposure control, adjustment of mA and/or kV according to patient size.? ? COMPARISON:? [facility], CT, HEAD WITHOUT CONTRAST, 01/02/2012, 20:40. ? FINDINGS:? Image quality:? Excellent.? ? CSF spaces:? Basal cisterns are patent.? No extra-axial fluid collections.? Ventricles are normal in size and shape.? ? Brain:? No midline shift.? There is a a thin subdural hematoma layering over the left tentorium measuring up to 5 mm in thickness.? [place]-white matter interface is normal. Moderate cerebral and cerebellar volume loss with multifocal white matter chronic ischemic change noted. Moderate calcified atherosclerotic plaque noted involving the cavernous portions of both internal carotid arteries. ? ? Skull and face:? Calvarium and visualized facial bones are intact, without suspicious lesions.? ? Sinuses:? Visualized sinuses and mastoids are clear.? ? IMPRESSION:? ? Thin 5 mm left tentorial subdural hematoma.? No mass effect or midline shift ? Atrophy and chronic ischemic change ? Note:? Critical results were discussed with Dr. Carty at 11:31 AM [place] time on 09/22/21 ? Approved by: Abhinav Gordon M.D. on 09/22/2021 at 11:32? CT - cervical spine: Radiologist's Impression: [address] [address] [address] Scan Report Signed Patient: Kelly Benitez MR#: [id number] : 1950 Acct:[id number] Age/Sex: 71 / F Date of Service: 09/22/21 Loc: ED Accession Number: [id number] ?? Procedure: CT cervical spine wo con Ordering Provider: Shavon Carty D.O. PROCEDURE:? CT CERVICAL SPINE WO CON ? INDICATIONS:? fall, SDH, no neck pain ? TECHNIQUE:? Noncontrast 3 mm thick sections acquired from the skull base to the T4 level.? Sagittal and coronal reformats were then constructed.? For radiation dose reduction, the following was used:? automated exposure control, adjustment of mA and/or kV according to patient size.? ? COMPARISON:? None. ? FINDINGS:? Image quality:? Excellent.? ? Bones:? No fractures or dislocations.? Visualized superior ribs are intact.? Degenerative disc disease and arthropathy noted in the mid cervical spine ? Soft tissues:? Prevertebral soft tissues are normal in thickness.? No paravertebral hematomas.? No apical pneumothoraces.? 3 x 4.5 cm nodule noted in the left lobe of the thyroid ? ? IMPRESSION:? ? No evidence of fracture or malalignment Multilevel degenerative disc disease and arthropathy Large 4.5 cm nodule the left lobe of the thyroid can be further evaluated with ultrasound ? Approved by: Abhinav Gordon M.D. on 09/22/2021 at 12:43? CT facial bones: Radiologist's Impression: [place] [address] CT Scan Report Signed Patient: Kelly Benitez MR#: [id number] : 1950 Acct:[id number] Age/Sex: 71 / F Date of Service: 09/22/21 Loc: ED Accession Number: [id number] ?? Procedure: CT facial bones wo con Ordering Provider: Shavon Carty D.O. PROCEDURE:? CT FACIAL BONES WO CON ? INDICATIONS:? fall, facial lac, dental pain ? TECHNIQUE:? Noncontrast 2.5 mm thick axial images acquired from the mandible through the frontal sinuses, with coronal and sagittal reformatting.? For radiation dose reduction, the following was used:? automated exposure control, adjustment of mA and/or kV according to patient size.? ? COMPARISON:? None. ? FINDINGS:? Image quality:? Excellent.? ? Bones and teeth:? Orbital ghosh are intact.? Sinus ghosh show no fracture or deformity.? Nasal bones and septum are intact.? Visualized portions of the mandible demonstrate no fractures or subluxation.? Zygomatic arches are intact.? Pterygoid plates are intact.? Visualized portions of the skull base and auditory canals are intact.? Right mandibular bicuspid periodontal disease erodes the buccal cortex ? Sinuses:? Paranasal sinuses are aerated, without fluid levels, mucosal thickening, or mucoceles.? Mastoid air cells are aerated.? ? Soft tissues:? Right mandibular lip soft tissue swelling.? No radiopaque foreign body. ? Vascular:? Visualized vascular structures appear normal in the absence of contrast.? Bony vascular foramina and canals are intact.? ? IMPRESSION:? ? 1. Right mandibular lip soft tissue swelling without radiopaque foreign body or facial fracture ? 2. Right mandibular bicuspid periodontal disease with erosion of the buccal cortex.? Recommend dental consult ? ? ? Approved by: Abhinav Gordon M.D. on 09/22/2021 at 11:37? Chest x-ray: Radiologist's Impression: Close Chest X-Ray (Signed) Abhinav Gordon - 09/22/[address] (Signed) Evan,Abhinav - 09/22/[address] (Signed) Abhinav Gordon - 09/22/[address] (Signed) Abhinav Gordon - 09/22/[address] (Signed) Jack Dolan - 07/11/21 Mammogram Screening (Signed) Bob Davies - 04/25/21 Abdomen/Pelvis CT (Signed) Tomas Taylor - 01/01/21 Abdomen Ultrasound (Signed) Varun Alejandra - 12/14/20 Mammogram Screening (Signed) Karina Mendez - 03/16/20 Echocardiogram Ultrasound (Signed) Marquez Jones - 01/11/20 Mammogram Diagnostic (Signed) Esvin Wright - 08/25/19 Breast Ultrasound (Signed) Esvin Wright - 08/25/19 Chest X-Ray (Signed) Logan Toribio - 07/13/19 Mammogram Screening (Signed) Chris Sommers - 03/15/19 Ribs w/Chest X-Ray (Signed) Jayce Wagner - 05/14/18 Mammogram Screening (Signed) Karina Mendez - 02/25/18 Launch?[address] [address] XRay Report Signed Patient: Kelly Benitez MR#: [id number] : 1950 Acct:[id number] Age/Sex: 71 / F Date of Service: 09/22/21 Loc: ED Accession Number: [id number] ?? Procedure: XR chest 1V Ordering Provider: Shavon Carty D.O. PROCEDURE:? XR CHEST 1V ? INDICATIONS:? fall, +SDH ? TECHNIQUE:? One view of the chest was acquired.? ? COMPARISON:? [facility], CR, XR CHEST 2V, 07/13/2019, 14:46. ? FINDINGS:? ? Surgical changes and devices:? None.? ? Lungs and pleura:? Elevated right hemidiaphragm again noted.? Minimal right basilar atelectasis and or infiltrate.? Left lung and pleural spaces are clear. ? Mediastinum:? Mediastinal contours appear normal.? Heart size is normal.? Atherosclerotic vascular calcification noted in the aortic arch. ? Bones and chest wall:? No suspicious bony lesions.? Overlying soft tissues appear unremarkable.? ? IMPRESSION:? ? Stable elevated right hemidiaphragm. Right basilar minimal atelectasis and or infiltrate ? ? ? Approved by: Abhinav Gordon M.D. on 09/22/2021 at 12:40? repeat Head CT: Radiologist's Impression: [place] [address] CT Scan Report Signed Patient: Kelly Benitez MR#: [id number] : 1950 Acct:[id number] Age/Sex: 71 / F Date of Service: 09/22/21 Loc: ED Accession Number: [id number] ?? Procedure: CT head/brain wo con Ordering Provider: Shavon Carty D.O. PROCEDURE:? CT HEAD/BRAIN WO CON ? INDICATIONS:? 5mm SDH, repeat at [facility] request. ? TECHNIQUE:? Noncontrast 4.5 mm thick angled axial sections acquired from the foramen magnum to the vertex, with coronal and sagittal reformats.? For radiation dose reduction, the following was used:? automated exposure control, adjustment of mA and/or kV according to patient size.? ? COMPARISON:? [facility], CT, CT HEAD/BRAIN WO CON, 09/22/2021, 11:46. ? FINDINGS:? Image quality:? Excellent.? ? CSF spaces:? Basal cisterns are patent.? Hyperdense blood products at the left tentorium measuring at 0.6 cm, (07/28), previously 0.5 cm.? Ventricles are normal in size and shape. ? ? Brain:? No midline shift.? No intracranial masses.? No area of hypodensity in a large vascular distribution to suggest acute infarction. Periventricular hypodensity consistent with chronic microvascular ischemic change. Age-related parenchymal loss. ? Skull and face:? Calvarium and visualized facial bones are intact, without suspicious lesions.? ? Sinuses:? Visualized sinuses and mastoids are clear.? ? IMPRESSION:? Left subdural hematoma at the left tentorium measuring 6 mm.? This may be slightly increased.? ? ? Dictated by: Yoseph Zimmerman M.D. on 09/22/2021 at 15:46 ? ? Approved by: Yoseph Zimmerman M.D. on 09/22/2021 at 15:50? MDM Narrative Medical decision making narrative: This is a 1-year-old female who comes emergency department after a mechanical ground level fall. Patient initially had a pretty significant bleed of her right upper lip that could not be controlled without direct pressure patient had put out about 150 mL the department so this was repaired quickly patient after repair bleeding stopped. She had an aspirin today but is not normally anticoagulated she did hit her head she has some discomfort and a chipped tooth on examination. Head CT and facial bones were obtained. Patient have a 5 mm tentorial subdural without any shift or other change. C-spine was obtained as well and is negative. Chest x-ray shows consistent changes with patient's prior right lobectomy. Patient case was discussed with neuro surgery at [facility] and they reviewed patient's images. They recommended repeat head CT 4 hours from initial this went from 5-6 mm there was some delay in receiving call back and the night provider who taken sign-out ordered a 3rd and CT which does not show any additional change. Neuro surgery states patient is okay based on images for discharge home and that a 1 mm potential changes within limits of measurements. Patient had 1 brief episode where she had some sudden increased swelling within the lips itself and I suspect she had a small amount of bleeding. She has not had any additional and swelling has been stable for at least 6 hours. Plan for soft diet, follow-up with dentist, no anticoagulation or ibuprofen and follow up with primary care. Patient has strict return precautions discussed with her and herself. All questions answered. Patient and both expressed their understanding and comfort with plan. <Gwendolyn Sampson, DO - Last Filed: 09/23/21 04:46> Lab Data Labs: Lab Results 09/22/21 09/22/21 09/22/21 Range/Units 11:11 11:11 11:11 WBC 5.7 (4.5-11.0) X10^3/uL RBC 3.68 L (4.0-5.2) X10^6/uL Hgb 11.8 L (12.0-16.0) g/dL Hct 34.3 L (36-46) % MCV 93.4 (80-100) fL MCH 32.2 (26-34) PG MCHC 34.5 (30-36) % RDW 13.2 (11.6-14.8) % Plt Count 273 (150-400) X10^3/uL Neut % (Auto) 64.0 (50-75) % Lymph % (Auto) 24.4 L (25-40) % [place] % (Auto) 8.0 (3-14) % Eos % (Auto) 2.9 (2-4) % Baso % (Auto) 0.7 (0-2) % Neut # (Auto) 3600 (0507-9527) /uL Lymph # (Auto) 1400 (3594-7982) /uL [place] # (Auto) 500 (0-900) /uL Eos # (Auto) 200 (0-450) /uL Baso # (Auto) 0 (0-100) /uL PT 12.0 (10.1-12.7) SECONDS INR 1.1 (0.9-1.3) APTT 37 H (26.4-36.2) SECONDS Sodium 131 L (137-145) mmol/L Potassium 3.9 (3.4-5.1) mmol/L Chloride 98 (98-107) mmol/L Carbon Dioxide 26 (22-32) mmol/L BUN 9 (7-17) mg/dL Creatinine 0.54 (0.52-1.04) mg/dL Estimated GFR > 60 (>60) mL/min BUN/Creatinine Ratio 16.7 (6-22) Glucose 110 (80-110) mg/dL Calcium 8.7 (8.4-10.2) mg/dL Total Bilirubin 0.6 (0.2-1.3) mg/dL AST 38 H (14-36) IU/L ALT 22 (<35) IU/L Alkaline Phosphatase 124 (38-126) U/L Total Protein 7.6 (6.3-8.2) g/dL Albumin 4.4 (3.5-5.0) g/dL Globulin 3.2 (1.7-4.1) g/dL Albumin/Globulin Ratio 1.4 (1.0-2.8) SARS-CoV-2 (PCR) (Negative) Blood Type Antibody Screen Crossmatch 09/22/21 09/22/21 Range/Units 11:25 12:54 WBC (4.5-11.0) X10^3/uL RBC (4.0-5.2) X10^6/uL Hgb (12.0-16.0) g/dL Hct (36-46) % MCV (80-100) fL MCH (26-34) PG MCHC (30-36) % RDW (11.6-14.8) % Plt Count (150-400) X10^3/uL Neut % (Auto) (50-75) % Lymph % (Auto) (25-40) % Acad[place] % (Auto) (3-14) % Eos % (Auto) (2-4) % Baso % (Auto) (0-2) % Neut # (Auto) (2050-1337) /uL Lymph # (Auto) (8857-7460) /uL Acadia # (Auto) (0-900) /uL Eos # (Auto) (0-450) /uL Baso # (Auto) (0-100) /uL PT (10.1-12.7) SECONDS INR (0.9-1.3) APTT (26.4-36.2) SECONDS Sodium (137-145) mmol/L Potassium (3.4-5.1) mmol/L Chloride (98-107) mmol/L Carbon Dioxide (22-32) mmol/L BUN (7-17) mg/dL Creatinine (0.52-1.04) mg/dL Estimated GFR (>60) mL/min BUN/Creatinine Ratio (6-22) Glucose (80-110) mg/dL Calcium (8.4-10.2) mg/dL Total Bilirubin (0.2-1.3) mg/dL AST (14-36) IU/L ALT (<35) IU/L Alkaline Phosphatase (38-126) U/L Total Protein (6.3-8.2) g/dL Albumin (3.5-5.0) g/dL Globulin (1.7-4.1) g/dL Albumin/Globulin Ratio (1.0-2.8) SARS-CoV-2 (PCR) Negative (Negative) Blood Type O Positive Antibody Screen Negative Crossmatch See Detail Imaging Data Head CT 2: Radiologist's Impression: Acct:[id number] Age/Sex: 71 / F Date of Service: 09/22/21 Loc: ED Accession Number: [id number] ?? Procedure: CT head/brain wo con Ordering Provider: Shavon Carty D.O. PROCEDURE:? CT HEAD/BRAIN WO CON ? INDICATIONS:? 5mm SDH, repeat at Neurosx request. ? TECHNIQUE:? Noncontrast 4.5 mm thick angled axial sections acquired from the foramen magnum to the vertex, with coronal and sagittal reformats.? For radiation dose reduction, the following was used:? automated exposure control, adjustment of mA and/or kV according to patient size.? ? COMPARISON:? [facility], CT, CT HEAD/BRAIN WO CON, 09/22/2021, 11:46. ? FINDINGS:? Image quality:? Excellent.? ? CSF spaces:? Basal cisterns are patent.? Hyperdense blood products at the left tentorium measuring at 0.6 cm, (07/28), previously 0.5 cm.? Ventricles are normal in size and shape. ? ? Brain:? No midline shift.? No intracranial masses.? No area of hypodensity in a large vascular distribution to suggest acute infarction. Periventricular hypodensity consistent with chronic microvascular ischemic change. Age-related parenchymal loss. ? Skull and face:? Calvarium and visualized facial bones are intact, without suspicious lesions.? ? Sinuses:? Visualized sinuses and mastoids are clear.? ? IMPRESSION:? Left subdural hematoma at the left tentorium measuring 6 mm.? This may be slightly increased.? ? ? Dictated by: Yoseph Zimmerman M.D. on 09/22/2021 at 15:46 ? ? Approved by: Yoseph Zimmerman M.D. on 09/22/2021 at 15:50 ? Head CT 3: Radiologist's Impression: CT Scan Report Signed Patient: Kelly Benitez MR#: [id number] : 1950 Acct:[id number] Age/Sex: 71 / F Date of Service: 09/22/21 Loc: ED Accession Number: [id number] ?? Procedure: CT head/brain wo con Ordering Provider: Gwendolyn Sampson D.O. PROCEDURE:? CT HEAD/BRAIN WO CON ? INDICATIONS:? expanding bleed ? TECHNIQUE:? Noncontrast 4.5 mm thick angled axial sections acquired from the foramen magnum to the vertex, with coronal and sagittal reformats.? For radiation dose reduction, the following was used:? automated exposure control, adjustment of mA and/or kV according to patient size.? ? COMPARISON:? [facility], CT, CT HEAD/BRAIN WO CON, 09/22/2021, 15:37. ? FINDINGS:? Image quality:? Excellent.? ? CSF spaces:? Basal cisterns are patent.? Left subdural hematoma along the tentorium measuring 0.6 cm, (07/30), unchanged.? Ventricles are normal in size and shape.? ? Brain:? No midline shift.? No intracranial masses or hemorrhage.? No area of hypodensity in a large vascular distribution to suggest acute infarction. Periventricular hypodensity consistent with chronic microvascular ischemic change. Age-related parenchymal loss. ? Skull and face:? Calvarium and visualized facial bones are intact, without suspicious lesions.? ? Sinuses:? Visualized sinuses and mastoids are clear.? ? IMPRESSION:? Small left subdural hematoma along the tentorium is unchanged. ? ? Dictated by: Yoseph Zimmerman M.D. on 09/22/2021 at 20:05 ? ? MDM Narrative Medical decision making narrative: This is a 1-year-old female who comes emergency department after a mechanical ground level fall. Patient initially had a pretty significant bleed of her right upper lip that could not be controlled without direct pressure patient had put out about 150 mL the department so this was repaired quickly patient after repair bleeding stopped. She had an aspirin today but is not normally anticoagulated she did hit her head she has some discomfort and a chipped tooth on examination. Head CT and facial bones were obtained. Patient have a 5 mm tentorial subdural without any shift or other change. C-spine was obtained as well and is negative. Chest x-ray shows consistent changes with patient's prior right lobectomy. Patient case was discussed with neuro surgery at [facility] and they reviewed patient's images. They recommended repeat head CT 4 hours from initial this went from 5-6 mm there was some delay in receiving call back and the night provider who taken sign-out ordered a 3rd and CT which does not show any additional change. Neuro surgery states patient is okay based on images for discharge home and that a 1 mm potential changes within limits of measurements. Patient had 1 brief episode where she had some sudden increased swelling within the lips itself and I suspect she had a small amount of bleeding. She has not had any additional and swelling has been stable for at least 6 hours. Plan for soft diet, follow-up with dentist, no anticoagulation or ibuprofen and follow up with primary care. Patient has strict return precautions discussed with her and herself. All questions answered. Patient and both expressed their understanding and comfort with plan. Sarahnick-Patient briefly signed out to me by Dr. Carty. I discussed case with Neurosurgery he looked at head CT and states that 1 mm change is really no significant change and patient is neurologically intact patient may go home. Patient was [address] Carty who discharge patient. Patient actually had a 3rd head CT done. We had waited long time for neuro surgery. After 4 hours the patient a repeat head CT which appears stable. Discharge Plan Departure Patient Disposition: Home Clinical Impression: Subdural hematoma, Thyroid nodule, Laceration of lip, Hyponatremia, Chipped tooth Activity Restrictions/Additional Instructions: Your repeat head CT is stable and showed a very small subdural hematoma. This was discussed with neuro surgery at [facility]. They would like you to follow-up with her primary care in the next week. Do not take any blood thinners, no aspirin, Plavix for the next week. No ibuprofen x 1 week. You do have a thyroid nodule noted on your CT of your neck. This can be followed up outpatient with your primary care physician with ultrasound to further characterize if your unaware of it In terms of the laceration of your lip, soft diet until the laceration has healed. You can continue home medications as prescribed. Wound Care: Keep wound(s) clean and dry. Wash daily with soap and water only. Pat dry. Do not use over the counter products (alcohol or peroxide)on the wounds unless instructed by a physician. If wound condition worsens (increased/expanding redness, developing fluid blisters, or worsening pain), either contact your doctor for an urgent re-assessment , or return to the Emergency Department. Return to the Emergency Department for any new or worsening symptoms. Severe or worsening headaches, vision changes, new numbness, weakness, urinary incontinence or difficulty moving your extremities, passing out, if the laceration of your lip starts bleeding again, or other new or concerning symptoms Prescriptions: No Action acyclovir 400 MG tablet 400 mg PO 5XD PRN Qty: 0 Metoprolol Succinate (METOPROLOL XL) 50 mg PO BID Qty: 0 hydrocodone-acetaminophen 5-325 mg tablet 1 tab PO BID PRN letrozole PO Referrals: Aakash Solomon MD [Primary Care Provider] - Visit Report Forms: Patient Portal/API
[2021-09-22 11:42] LABS: Alanine Aminotransferase 22 IU/L (<35); Albumin 4.4 g/dL (3.5-5.0); Albumin Globulin Ratio 1.4 (1.0-2.8); Alkaline Phosphatase 124 U/L (38-126); Aspartate Aminotransferase 38 IU/L (14-36); BUN Creatinine Ratio 16.7 (6-22); Bilirubin Total 0.6 mg/dL (0.2-1.3); Blood Urea Nitrogen 9 mg/dL (7-17); Calcium 8.7 mg/dL (8.4-10.2); Carbon Dioxide 26 mmol/L (22-32); Chloride 98 mmol/L (98-107); Estimated Glomerular Filt Rate > 60 mL/min (>60); Globulin 3.2 g/dL (1.7-4.1); Glucose 110 mg/dL (80-110); HEMOLYSIS < 15 (0-50); Sodium 131 mmol/L (137-145); Total Protein 7.6 g/dL (6.3-8.2)
--- NOTE | 2021-09-22 11:59 | PC.NURSE ---
During triage, pressure applied to lip and suction set up. Dr. Carty aware and quickly at bedside suturing wound. Pt aaox3/3, speaking in clear and coherent sentences, denies dizziness, denies pain. States she hit her lip very hard upon fall. Moving all extremities equally, normal strength. Bleeding currently under control, pt denies other injuries, no other injuries assessed.
--- NOTE | 2021-09-22 12:31 | DI.CT.S_ITS ---
PROCEDURE: CT CERVICAL SPINE WO CON INDICATIONS: fall, SDH, no neck pain TECHNIQUE: Noncontrast 3 mm thick sections acquired from the skull base to the T4 level. Sagittal and coronal reformats were then constructed. For radiation dose reduction, the following was used: automated exposure control, adjustment of mA and/or kV according to patient size. COMPARISON: None. FINDINGS: Image quality: Excellent. Bones: No fractures or dislocations. Visualized superior ribs are intact. Degenerative disc disease and arthropathy noted in the mid cervical spine Soft tissues: Prevertebral soft tissues are normal in thickness. No paravertebral hematomas. No apical pneumothoraces. 3 x 4.5 cm nodule noted in the left lobe of the thyroid IMPRESSION: No evidence of fracture or malalignment Multilevel degenerative disc disease and arthropathy Large 4.5 cm nodule the left lobe of the thyroid can be further evaluated with ultrasound Approved by: Abhinav Gordon M.D. on 09/22/2021 at 12:43
[2021-09-22 12:35] LABS: Potassium 3.9 mmol/L (3.4-5.1)
--- NOTE | 2021-09-22 12:36 | DI.RAD.S_ITS ---
PROCEDURE: XR CHEST 1V INDICATIONS: fall, +SDH TECHNIQUE: One view of the chest was acquired. COMPARISON: [facility], CR, XR CHEST 2V, 07/13/2019, 14:46. FINDINGS: Surgical changes and devices: None. Lungs and pleura: Elevated right hemidiaphragm again noted. Minimal right basilar atelectasis and or infiltrate. Left lung and pleural spaces are clear. Mediastinum: Mediastinal contours appear normal. Heart size is normal. Atherosclerotic vascular calcification noted in the aortic arch. Bones and chest wall: No suspicious bony lesions. Overlying soft tissues appear unremarkable. IMPRESSION: Stable elevated right hemidiaphragm. Right basilar minimal atelectasis and or infiltrate Approved by: Abhinav Gordon M.D. on 09/22/2021 at 12:40
[2021-09-22 13:26] LABS: COVID19 -Nasal RAPID Negative (Negative)
--- NOTE | 2021-09-22 15:17 | PC.NURSE ---
While in the bathroom, pt reports she bent over to adjust her socks and felt her lip swell suddenly and quickly. More swelling the lip noted, ecchmosis from top of right lip to chin area. Dr. Carty notified and assessed, pt provided ice bag and instructed to hold against site. Rechecked and swelling appears to be improving.
--- NOTE | 2021-09-22 15:40 | DI.CT.S_ITS ---
PROCEDURE: CT HEAD/BRAIN WO CON INDICATIONS: 5mm SDH, repeat at Neuro[facility] request. TECHNIQUE: Noncontrast 4.5 mm thick angled axial sections acquired from the foramen magnum to the vertex, with coronal and sagittal reformats. For radiation dose reduction, the following was used: automated exposure control, adjustment of mA and/or kV according to patient size. COMPARISON: [facility], CT, CT HEAD/BRAIN WO CON, 09/22/2021, 11:46. FINDINGS: Image quality: Excellent. CSF spaces: Basal cisterns are patent. Hyperdense blood products at the left tentorium measuring at 0.6 cm, (07/28), previously 0.5 cm. Ventricles are normal in size and shape. Brain: No midline shift. No intracranial masses. No area of hypodensity in a large vascular distribution to suggest acute infarction. Periventricular hypodensity consistent with chronic microvascular ischemic change. Age-related parenchymal loss. Skull and face: Calvarium and visualized facial bones are intact, without suspicious lesions. Sinuses: Visualized sinuses and mastoids are clear. IMPRESSION: Left subdural hematoma at the left tentorium measuring 6 mm. This may be slightly increased. Dictated by: Yoseph Zimmerman M.D. on 09/22/2021 at 15:46 Approved by: Yoseph Zimmerman M.D. on 09/22/2021 at 15:50
--- NOTE | 2021-09-22 19:24 | DI.CT.S_ITS ---
PROCEDURE: CT HEAD/BRAIN WO CON INDICATIONS: expanding bleed TECHNIQUE: Noncontrast 4.5 mm thick angled axial sections acquired from the foramen magnum to the vertex, with coronal and sagittal reformats. For radiation dose reduction, the following was used: automated exposure control, adjustment of mA and/or kV according to patient size. COMPARISON: [facility], CT, CT HEAD/BRAIN WO CON, 09/22/2021, 15:37. FINDINGS: Image quality: Excellent. CSF spaces: Basal cisterns are patent. Left subdural hematoma along the tentorium measuring 0.6 cm, (07/30), unchanged. Ventricles are normal in size and shape. Brain: No midline shift. No intracranial masses or hemorrhage. No area of hypodensity in a large vascular distribution to suggest acute infarction. Periventricular hypodensity consistent with chronic microvascular ischemic change. Age-related parenchymal loss. Skull and face: Calvarium and visualized facial bones are intact, without suspicious lesions. Sinuses: Visualized sinuses and mastoids are clear. IMPRESSION: Small left subdural hematoma along the tentorium is unchanged. Dictated by: Yoseph Zimmerman M.D. on 09/22/2021 at 20:05 Approved by: Yoseph Zimmerman M.D. on 09/22/2021 at 20:07
== END 2021-09-22 20:43 | disposition home or self-care (01) ==
PROVIDERS: Emergency Medicine; Emergency Provider Emergency Medicine; PCP Family Medicine
DX: S01.511A Laceration without foreign body of lip, initial encounter (principal); S06.5X9A Traumatic subdural hemorrhage with loss of consciousness of unspecified duration, initial encounter; S02.5XXA Fracture of tooth (traumatic), initial encounter for closed fracture; W19.XXXA Unspecified fall, initial encounter; Z20.822 Contact with and (suspected) exposure to COVID-19
CPT/HCPCS: 36415; 70450; 70486; 71045; 72125; 80053; 85025; 85610; 85730; 86850; 86900; 86901; 87635; 96374; 99284; C9803; J2405

== ENCOUNTER 2021-12-18 17:10 | Emergency (ER) | payer MEDICARE, OTHER, SELFPAY ==
[2021-12-18 17:22] VITALS: BP 167/89; PULSE 82; RESP 17; TEMP 36.6; O2SAT 98
--- NOTE | 2021-12-18 17:25 | DI.RAD.S_ITS ---
PROCEDURE: XR RIBS RT MIN 3V W CXR 1V INDICATIONS: fall TECHNIQUE: Two views of the right ribs were acquired, along with a single view chest. COMPARISON: [facility], CR, XR CHEST 1V, 09/22/2021, 12:44. FINDINGS: Surgical changes and devices: None. Bones and chest wall: No fractures or dislocations. No suspicious bony lesions. Overlying soft tissues appear unremarkable. The aorta is tortuous. Lungs and pleura: There is elevation of the right hemidiaphragm with blunting of the right costophrenic angle with adjacent atelectasis. No pneumothorax. Mediastinum: Mediastinal contours appear normal. Heart size is normal. IMPRESSION: 1. Stable elevated right hemidiaphragm with adjacent atelectasis. 2. No acute abnormality. Dictated by: Bob Davies M.D. on 12/18/2021 at 19:23 Approved by: Bob Davies M.D. on 12/18/2021 at 19:25
--- NOTE | 2021-12-18 17:25 | DI.RAD.S_ITS ---
PROCEDURE: XR KNEE RT 1TO2V INDICATIONS: fall TECHNIQUE: 2 views of the knee were acquired. COMPARISON: [facility], , KNEE 3V RIGHT, 06/19/2016, 14:25. FINDINGS: Bones: There is a fracture of inferior pole of the patella. There are tricompartmental degenerative changes of the knee with severe joint space narrowing especially of the lateral joint space with subchondral sclerosis. Soft tissues: Suprapatellar joint effusion. IMPRESSION: 1. Horizontal fracture of the inferior pole of the patella with a suprapatellar joint effusion. 2. Tricompartmental degenerative changes consistent with osteoarthritis. Dictated by: Bob Davies M.D. on 12/18/2021 at 19:21 Approved by: Bob Davies M.D. on 12/18/2021 at 19:22
[2021-12-18] MEDS: HYDROMORPHONE 1 MG INJ 0.5 MG IM (18:39)
--- NOTE | 2021-12-18 19:34 | DI.CT.S_ITS ---
PROCEDURE: CT HEAD/BRAIN WO CON INDICATIONS: hx of head bleed with fall TECHNIQUE: Noncontrast 4.5 mm thick angled axial sections acquired from the foramen magnum to the vertex, with coronal and sagittal reformats. For radiation dose reduction, the following was used: automated exposure control, adjustment of mA and/or kV according to patient size. COMPARISON: [facility], CT, CT HEAD/BRAIN WO CON, 09/22/2021, 19:41. FINDINGS: Image quality: Excellent. CSF spaces: Basal cisterns are patent. No extra-axial fluid collections. There is mild cerebral volume loss, with resultant ventricular and sulcal prominence. Brain: No intracranial hemorrhage, mass, or mass effect. There are subcortical, periventricular and deep white matter hypodensities consistent with mild chronic small vessel ischemic changes. The khan-white matter junction appears preserved. There is intracranial internal carotid artery atherosclerosis. Skull and face: Calvarium and visualized facial bones appear intact, without suspicious lesions. Sinuses: Visualized sinuses and mastoids are clear. IMPRESSION: 1. No acute intracranial abnormality. Dictated by: Esvin Wright M.D. on 12/18/2021 at 20:19 Approved by: Esvin Wright M.D. on 12/18/2021 at 20:20
--- NOTE | 2021-12-18 19:34 | DI.CT.S_ITS ---
PROCEDURE: CT FACIAL BONES WO CON INDICATIONS: R maxilla injury after fall TECHNIQUE: Noncontrast 2.5 mm thick axial images acquired from the mandible through the frontal sinuses, with coronal and sagittal reformatting. For radiation dose reduction, the following was used: automated exposure control, adjustment of mA and/or kV according to patient size. COMPARISON: [facility], CT, CT FACIAL BONES WO [facility], 09/22/2021, 11:46. FINDINGS: Image quality: There is metallic streak artifact from patient's dental hardware limiting evaluation. Bones and teeth: Orbital ghosh are intact. Sinus ghosh show no fracture or deformity. Nasal bones and septum are intact. Visualized portions of the mandible demonstrate no fractures or subluxation. Zygomatic arches are intact. Pterygoid plates are intact. Visualized portions of the skull base and auditory canals are intact. Sinuses: Paranasal sinuses are aerated, without fluid levels, mucosal thickening, or mucoceles. Mastoid air cells are aerated. Soft tissues: No edema, masses, or fluid collections. No enlarged lymph nodes. No soft tissue lacerations or debris. The globes appear intact. Vascular: Visualized vascular structures appear normal in the absence of contrast. Bony vascular foramina and canals are intact. IMPRESSION: 1. No facial bone fracture identified. Dictated by: Esvin Wright M.D. on 12/18/2021 at 20:20 Approved by: Esvin Wright M.D. on 12/18/2021 at 20:23
--- NOTE | 2021-12-18 19:34 | ED.FALL ---
HPI - Fall General Chief Complaint: Fall Stated Complaint: GLF on concrete to right side Time Seen by Provider: 12/18/21 18:33 Source: patient Mode of arrival: Wheelchair Limitations: no limitations History of Present Illness HPI Narrative: Patient is a 71-year-old female who is here for evaluation of injuries that she sustained when she tripped and fell while out walking her dog. States she landed on her right knee and then fell forward and hitting her face on the ground. There was no loss of consciousness. She states that she does feel like the teeth in the right upper portion of her jaw seem to be pushed back. She contacted her dentist and has an appointment tomorrow with regard to this. Has bruising on the right side of her face. She also reports fairly intense right knee pain. Unable to bend her knee. Has a difficult time raising her leg straight up in the air because of the discomfort. No headache. No neck pain. Patient states she has had a bleed in her head in the past. Related Data Home Medications Medication Instructions Recorded Confirmed acyclovir 400 mg tablet 400 mg PO 5XD PRN ##0 10/21/11 06/17/19 Metoprolol Succinate (METOPROLOL 50 mg PO BID ##0 06/17/19 XL) hydrocodone 5 mg-acetaminophen 325 1 tab PO BID PRN 06/17/19 06/17/19 mg tablet letrozole PO 06/17/19 06/17/19 Allergies Allergy/AdvReac Type Severity Reaction Status Date / Time No Known Drug Allergies Allergy Unverified 06/17/19 16:26 Review of Systems Constitutional Constitutional: Reports system reviewed and no additional complaints, except as documented Musculoskeletal Musculoskeletal: Reports system reviewed and no additional complaints, except as documented Integumentary/Breasts Skin/Breast: Reports system reviewed and no additional complaints, except as documented Neurologic Neurologic: Reports system reviewed and no additional complaints, except as documented Hematologic/Lymphatic On Anticoagulants: No Patient History Medical History Genetic susceptibility to breast cancer Low back pain Muscle strain Postmenopausal postcoital bleeding Surgical History Status post breast lumpectomy Social History Smoking Status: Never smoker Smoking Status: Never smoker alcohol intake frequency: 0-2 drinks per day Substance Use Type: does not use Exam Initial Vital Signs Initial Vital Signs: Vital Signs Temperature 97.9 F 12/18/21 17:22 Pulse Rate 82 12/18/21 17:22 Respiratory Rate 17 12/18/21 17:22 Blood Pressure 167/89 H 12/18/21 17:22 Pulse Oximetry 98 12/18/21 17:22 Oxygen Delivery Method 12/18/21 17:22 Const General: cooperative, comfortable and well developed HENMT Face and sinus: other (Contusion along right mandible) Mouth: tongue normal Teeth and gingiva: other (Tooth 6 Seven and 8 do appear To be pushed posteriorly and somewhat impact) Chest Chest: normal inspection of the chest Other: Does have discomfort along the right anterior and lateral mid chest wall. No crepitus noted. Resp Effort & Inspection: normal respiratory effort Auscultation: clear to auscultation bilaterally Cardio Rate: regular rate Rhythm: regular rhythm Back/Spine/Pelvis Cervical Spine: No cervical spinal tenderness Skin Other: Contusion along right mandible, contusion/abrasion right anterior knee Neuro General: patient alert, patient awake and patient oriented x3 Extrem Other: Upper extremities unremarkable. Left lower extremity unremarkable. Patient does have an effusion and discomfort to the right knee. Unable to bend the knee. Unable to do straight leg raise. Psych Appearance: grossly normal Scores Nexus Score for C-Spine Focal Neurologic deficit present: No Midline spinal tenderness present: No Altered level of conciousness present: No Intoxication present: No Distracting Injury Present: No Nexus Criteria for C-spine: 0 Course Orders Ordered: ED Orders 12/18/21 17:25 XR knee RT 1to2V Stat XR ribs RT min 3V w CXR1V Stat 12/18/21 19:34 CT facial bones wo con Stat CT head/brain wo con Stat Discontinued Medications Hydrocodone Bitart/Acetaminophen (Hydrocodone/Acet 5/325 Prepack) 1 bottle MISC SEEINSTR ONE Stop: 12/18/21 20:50 Last Admin: 12/18/21 21:18 Dose: 1 bottle Documented By: VIOLETA Hydromorphone HCl (Hydromorphone 1 Mg Inj) 0.5 mg IM NOW ONE Stop: 12/18/21 18:34 Last Admin: 12/18/21 18:39 Dose: 0.5 mg Documented By: VIOLETA Hydromorphone HCl (Hydromorphone 0.5 Mg Inj) 0.5 mg IV NOW ONE Stop: 12/18/21 19:35 Last Admin: 12/18/21 19:59 Dose: 0.5 mg Documented By: VIOLETA Ondansetron HCl (Ondansetron 4 Mg Odt) 4 mg SL NOW ONE Stop: 12/18/21 19:56 Last Admin: 12/18/21 20:03 Dose: Not Given Documented By: VIOLETA Vital Signs Vital signs: Vital Signs - 8 hr 12/18/21 21:20 Temperature 98.7 F Respiratory Rate 20 Blood Pressure 164/72 H Pulse Oximetry 99 Oxygen Delivery Method Room Air MDM - Fall Imaging Data CT scan - head: Radiologist's Impression: [address] [address] [address] Scan Report Signed Patient: Kelly Benitez MR#: [id number] : 1950 Acct:[id number] Age/Sex: 71 / F Date of Service: 12/18/21 Loc: ED Accession Number: [id number] ?? Procedure: CT head/brain wo con Ordering Provider: Joni Mccabe D.O. PROCEDURE:? CT HEAD/BRAIN WO CON ? INDICATIONS:? hx of head bleed with fall ? TECHNIQUE:? Noncontrast 4.5 mm thick angled axial sections acquired from the foramen magnum to the vertex, with coronal and sagittal reformats.? For radiation dose reduction, the following was used:? automated exposure control, adjustment of mA and/or kV according to patient size.? ? COMPARISON:? [facility], CT, CT HEAD/BRAIN WO CON, 09/22/2021, 19:41. ? FINDINGS:? Image quality:? Excellent.? ? CSF spaces:? Basal cisterns are patent.? No extra-axial fluid collections.? There is mild cerebral volume loss, with resultant ventricular and sulcal prominence.? ? Brain:? No intracranial hemorrhage, mass, or mass effect.? There are subcortical, periventricular and deep white matter hypodensities consistent with mild chronic small vessel ischemic changes.? The khan-white matter junction appears preserved.? There is intracranial internal carotid artery atherosclerosis.? ? Skull and face:? Calvarium and visualized facial bones appear intact, without suspicious lesions.? ? Sinuses:? Visualized sinuses and mastoids are clear.? ? IMPRESSION:? ? 1. No acute intracranial abnormality.? ? ? Dictated by: Esvin Wright M.D. on 12/18/2021 at 20:19 ? ? Approved by: Esvin Wright M.D. on 12/18/2021 at 20:20?? CT face: Radiologist's Impression: [address] [address] [address] Scan Report Signed Patient: Kelly Benitez MR#: [id number] : 1950 Acct:[id number] Age/Sex: 71 / F Date of Service: 12/18/21 Loc: ED Accession Number: [id number] ?? Procedure: CT facial bones wo con Ordering Provider: Joni Mccabe D.O. PROCEDURE:? CT FACIAL BONES WO CON ? INDICATIONS:? R maxilla injury after fall ? TECHNIQUE:? Noncontrast 2.5 mm thick axial images acquired from the mandible through the frontal sinuses, with coronal and sagittal reformatting.? For radiation dose reduction, the following was used:? automated exposure control, adjustment of mA and/or kV according to patient size.? ? COMPARISON:? [facility], CT, CT FACIAL BONES WO CON, 09/22/2021, 11:46. ? FINDINGS:? Image quality:? There is metallic streak artifact from patient's dental hardware limiting evaluation.? ? Bones and teeth:? Orbital ghosh are intact.? Sinus ghosh show no fracture or deformity.? Nasal bones and septum are intact.? Visualized portions of the mandible demonstrate no fractures or subluxation.? Zygomatic arches are intact.? Pterygoid plates are intact.? Visualized portions of the skull base and auditory canals are intact.? ? Sinuses:? Paranasal sinuses are aerated, without fluid levels, mucosal thickening, or mucoceles.? Mastoid air cells are aerated.? ? Soft tissues:? No edema, masses, or fluid collections.? No enlarged lymph nodes.? No soft tissue lacerations or debris.? The globes appear intact.? ? Vascular:? Visualized vascular structures appear normal in the absence of contrast.? Bony vascular foramina and canals are intact.? ? IMPRESSION:? ? 1. No facial bone fracture identified. ? ? Dictated by: Esvin Wright M.D. on 12/18/2021 at 20:20 ? ? Approved by: Esvin Wright M.D. on 12/18/2021 at 20:23? XR ribs: Radiologist's Impression: [address] [address] XRay Report Signed Patient: Kelly Benitez MR#: [id number] : 1950 Acct:[id number] Age/Sex: 71 / F Date of Service: 12/18/21 Loc: ED Accession Number: [id number] ?? Procedure: XR ribs RT min 3V w CXR1V Ordering Provider: Gwendolyn Sampson D.O. PROCEDURE:? XR RIBS RT MIN 3V W CXR 1V ? INDICATIONS:? fall ? TECHNIQUE:? Two views of the right ribs were acquired, along with a single view chest.? ? COMPARISON:? [facility], , XR CHEST 1V, 09/22/2021, 12:44. ? FINDINGS:? ? Surgical changes and devices:? None.? ? Bones and chest wall:? No fractures or dislocations.? No suspicious bony lesions.? Overlying soft tissues appear unremarkable.? The aorta is tortuous. ? Lungs and pleura:? There is elevation of the right hemidiaphragm with blunting of the right costophrenic angle with adjacent atelectasis.? No pneumothorax. ? Mediastinum:? Mediastinal contours appear normal.? Heart size is normal.? ? IMPRESSION:? 1. Stable elevated right hemidiaphragm with adjacent atelectasis. 2. No acute abnormality.? ? ? Dictated by: Bob Davies M.D. on 12/18/2021 at 19:23 ? ? Approved by: Bob Davies M.D. on 12/18/2021 at 19:25?? Extremity x-ray #1: Radiologist's Impression: [address] [address] XRay Report Signed Patient: Kelly Benitez MR#: [id number] : 1950 Acct:[id number] Age/Sex: 71 / F Date of Service: 12/18/21 Loc: ED Accession Number: [id number] ?? Procedure: XR knee RT 1to2V Ordering Provider: Gwendolyn Sampson D.O. PROCEDURE:? XR KNEE RT 1TO2V ? INDICATIONS:? fall ? TECHNIQUE:? 2 views of the knee were acquired.? ? COMPARISON:? [facility], , KNEE 3V RIGHT, 06/19/2016, 14:25. ? FINDINGS:? ? Bones:? There is a fracture of inferior pole of the patella.? There are tricompartmental degenerative changes of the knee with severe joint space narrowing especially of the lateral joint space with subchondral sclerosis. ? Soft tissues:? Suprapatellar joint effusion. ? ? IMPRESSION:? 1. Horizontal fracture of the inferior pole of the patella with a suprapatellar joint effusion. 2. Tricompartmental degenerative changes consistent with osteoarthritis.? ? ? Dictated by: Bob Davies M.D. on 12/18/2021 at 19:21 ? ? Approved by: Bob Davies M.D. on 12/18/2021 at 19:22? MDM Narrative Medical decision making narrative: Head CT ordered because the patient did fall and has had a head bleed in the past. There is no acute pathology. Facial CT does not show any acute pathology. She does appear to have posteriorly displaced impacted right upper front teeth. She is a follow-up with her dentist tomorrow with regard to this. The abrasions on her face knee no intervention here in the ER. She has discomfort along the right anterior chest wall. Rib x-ray shows no signs of fracture. We did discuss the possibility of contused ribs or a fracture that is not visualized on the x-ray. Patient does have a fractured patella the right knee. This does correspond to the discomfort that she is having. She is unable to do a straight leg raise and unsure whether not this is also associated with patellar tendon rupture quadriceps tendon rupture. I did discuss the case with Dr. Mota with Orthopedics. Will place the patient in a knee immobilizer and crutches and weight-bearing as tolerated have her follow-up in the clinic as an outpatient. Patient was given return precautions. She expressed understanding and agreement. Discharge Plan Departure Patient Disposition: Home Clinical Impression: Fractured patella, Contusion of rib on right side, Contusion of face, Dental impaction Instructions: How to Use Crutches, DI for Patella Fracture, How to Use a Knee Immobilizer Activity Restrictions/Additional Instructions: If you can keep your appointment with your dentist tomorrow that would be ideal has you are going to need follow-up for further evaluation of your dental injuries. Is important that you occasionally take deep breaths and cough like we discussed. If you start to have shortness of breath or fevers you do need to be re-evaluated. You did fracture your right kneecap. This is also called the patella. Despite this injury you can put pressure/walk on your right leg as tolerated. The knee immobilizer does need to be on if you were up walking. But you can take it off at night to sleep and if your sitting on the couch. Be sure to keep your leg elevated and also use ice. Contact the orthopedic doctors at the number provided below for a follow-up within the next week. Return to the emergency department for any new or worsening symptoms. Prescriptions: No Action acyclovir 400 MG tablet 400 mg PO 5XD PRN Qty: 0 Metoprolol Succinate (METOPROLOL XL) 50 mg PO BID Qty: 0 hydrocodone-acetaminophen 5-325 mg tablet 1 tab PO BID PRN letrozole PO Referrals: Ebonie Mota MD [Physician] - Aakash Solomon MD [Primary Care Provider] - Visit Report Forms: Patient Portal/API
[2021-12-18] MEDS: HYDROMORPHONE 0.5 MG INJ IV (19:59)
[2021-12-18] MEDS: ONDANSETRON 4 MG/2 ML INJ (20:03)
[2021-12-18] MEDS: HYDROCODONE/ACET 5/325 PREPACK 1 BOTTLE MISC (21:18)
[2021-12-18 21:20] VITALS: BP 164/72; RESP 20; TEMP 37.1; O2SAT 99
== END 2021-12-18 21:20 | disposition home or self-care (01) ==
PROVIDERS: Emergency Provider Emergency Medicine; PCP Family Medicine
DX: S82.001A Unspecified fracture of right patella, initial encounter for closed fracture (principal); S20.211A Contusion of right front wall of thorax, initial encounter; S00.83XA Contusion of other part of head, initial encounter; K01.1 Impacted teeth; W01.0XXA Fall on same level from slipping, tripping and stumbling without subsequent striking against object, initial encounter
CPT/HCPCS: 70450; 70486; 71101; 73560; 96372; 96374; 99284; J1170; J2405

== ENCOUNTER → 2022-02-06 09:33 | Outpatient (CLI) | payer MEDICARE, OTHER, SELFPAY ==
--- NOTE | 2022-02-06 09:39 | DI.CT.S_ITS ---
PROCEDURE: CT LE RT WO CON INDICATIONS: Pain in right knee TECHNIQUE: Noncontrast 1-1.5 mm axial sections acquired from the mid-patella to the proximal tibia, with coronal and sagittal reformats. COMPARISON: [facility], CR, XR KNEE RT 1TO2V, 12/18/2021, 18:35. [facility] [place], CR, XR KNEE 1 OR 2 VIEWS RIGHT, 12/27/2021, 15:06. [facility], [facility], XR KNEE 1 OR 2 VIEWS RIGHT, 02/01/2022, 13:51. FINDINGS: Image quality: Excellent. Bones: There is generalized osteopenia. Horizontal fracture involving the inferior pole of the patella is again seen that does not appear significantly displaced. No osseous bridging is seen. There is possible mild developing cortication along the fracture margins. The fracture extends to the patellar articular surface without significant step-off. Severe joint space narrowing is seen at the lateral femorotibial compartment with subchondral sclerosis, subchondral cystic changes, marginal osteophyte formation, and remodeling of the lateral tibial plateau articular surface. Subchondral and marginal osteophyte formation is seen at the medial compartment. There is severe joint space narrowing in the anterior compartment with subchondral cystic changes and marginal osteophytes. Soft tissues: There is a moderate joint effusion. A 14 mm ossification is seen lateral to the lateral patella. Calcifications are seen in the medial and lateral femorotibial compartments, consistent with chondrocalcinosis. There is a small medial popliteal cyst. Mild generalized grade 2 fatty infiltration of the musculature surrounding the knee. IMPRESSION: 1. Minimally displaced horizontal fracture of the patella. No osseous bridging is seen. There is suggestion of possible mild cortication along the fracture margins. 2. Tricompartmental osteoarthrosis is severe at the lateral and anterior compartments. 3. Moderate joint effusion with a 14 mm ossified loose body at the suprapatellar recess. Small medial popliteal cyst. 4. Chondrocalcinosis. Differential diagnosis includes but is not limited to CPPD, hyperparathyroidism, and hemochromatosis. Approved by: Jack Dolan M.D. on 02/06/2022 at 10:14
== END ==
PROVIDERS: PCP Family Medicine; Referring Provider Orthopaedic Surgery; Visit Provider Orthopaedic Surgery
DX: S82.034A Nondisplaced transverse fracture of right patella, initial encounter for closed fracture (principal); M25.561 Pain in right knee; M17.11 Unilateral primary osteoarthritis, right knee; M25.461 Effusion, right knee; M11.261 Other chondrocalcinosis, right knee; M71.21 Synovial cyst of popliteal space [Baker], right knee; X58.XXXA Exposure to other specified factors, initial encounter
CPT/HCPCS: 73700

== ENCOUNTER → 2022-05-01 11:00 | Outpatient (CLI) | payer MEDICARE, OTHER, SELFPAY ==
--- NOTE | 2022-05-01 11:03 | DI.MG.S_ITS ---
BILATERAL DIGITAL SCREENING MAMMOGRAM 3D/2D WITH CAD: 05/01/2022 CLINICAL: Routine screening. Personal history of left breast cancer. Family history of breast cancer. Comparison is made to exams dated: 04/25/2021 mammogram, 03/16/2020 mammogram, 08/25/2019 mammogram, 03/15/2019 mammogram, 02/25/2018 mammogram, and 02/07/2017 mammogram - [facility]. Both breasts are heterogeneously dense, which may obscure small masses (category c / 51-75% glandular tissue). Current study was also evaluated with a Computer Aided Detection (CAD) system. There are stable benign calcifications in both breasts. There also are benign post operative findings in the left breast. No significant masses, calcifications, or other findings are seen in either breast. There has been no significant interval change. IMPRESSION: BENIGN There is no mammographic evidence of malignancy. A 1 year screening mammogram is recommended. This exam was interpreted at Station ID: [id number]. NOTE: For mammograms, a report in lay terms will be sent to the patient. Approximately 15% of breast malignancies will not be visualized mammographically. In the management of a palpable breast mass, a negative mammogram must not discourage biopsy of a clinically suspicious lesion. Electronically Signed By: Yoseph aguila/barbara:05/01/2022 12:27:07 copy to: Andrea Gonzalez letter sent: Normal Exam ACR BI-RADS Category 2: Benign Finding(s) 3342F
== END ==
PROVIDERS: PCP Family Medicine; Referring Provider Family Medicine; Visit Provider Family Medicine
DX: Z12.31 Encounter for screening mammogram for malignant neoplasm of breast (principal); Z85.3 Personal history of malignant neoplasm of breast; Z80.3 Family history of malignant neoplasm of breast
CPT/HCPCS: 77063; 77067

== ENCOUNTER → 2022-08-15 07:15 | Outpatient (CLI) | payer MEDICARE, OTHER, SELFPAY ==
[2022-08-15 07:48] LABS: Add Manual Diff / Slide Review NO; Basophils Absolute Auto 0 /uL (0-100); Basophils Percent Auto 0.5 % (0-2); Eosinophils Absolute Auto 300 /uL (0-450); Eosinophils Percent Auto 4.1 % (2-4); Hematocrit 35.6 % (36-46); Hemoglobin 12.2 g/dL (12.0-16.0); Lymphocytes Absolute Auto 700 /uL (1100-4500); Lymphocytes Percent Auto 11.3 % (25-40); Mean Corpuscular HGB Conc 34.2 % (30-36); Mean Corpuscular Volume 93.6 fL (80-100); Monocytes Absolute Auto 500 /uL (0-900); Monocytes Percent Auto 8.5 % (3-14); Neutrophils Absolute Auto 4900 /uL (1500-7000); Neutrophils Percent Auto 75.6 % (50-75); Platelet Count 225 X10^3/uL (150-400); Red Blood Cell Count 3.81 X10^6/uL (4.0-5.2); Red Cell Distribution Width 13.3 % (11.6-14.8); White Blood Cell Count 6.4 X10^3/uL (4.5-11.0)
[2022-08-15 07:53] LABS: Appearance Urine UA CLEAR; Bilirubin Urine UA NEGATIVE (NEGATIVE); Color Urine UA YELLOW; Glucose Urine UA NEGATIVE (Negative); Ketones Urine UA NEGATIVE (NEGATIVE); Leukocyte Esterase Urine UA TRACE (NEGATIVE); Nitrite Urine UA NEGATIVE (Negative); Occult Blood Urine UA TRACE-INTACT (Negative); Protein Urine UA NEGATIVE (Negative); Specific Gravity Urine UA 1.015 (1.000-1.035); Urobilinogen Urine UA 0.2 E.U./dL (0.2)
[2022-08-15 07:54] LABS: pH Urine UA 6.5 (4.5-8.0)
[2022-08-15 07:58] LABS: Blood Urea Nitrogen 13 mg/dL (7-17); Calcium 8.8 mg/dL (8.4-10.2); Carbon Dioxide 29 mmol/L (22-32); Chloride 102 mmol/L (98-107); Estimated Glomerular Filt Rate > 60 mL/min (>60); Glucose 100 mg/dL (80-110); HEMOLYSIS < 15 (0-50); Potassium 4.1 mmol/L (3.4-5.1); Sodium 136 mmol/L (137-145)
[2022-08-15 08:23] LABS: Bacteria Urine Occasional (0-1); RBC Urine 0-1/HPF (0-5/HPF); Squamous Epithelial Cell Urine 0-1 /HPF (0-5/HPF); WBC Urine 0-1/HPF (0-5/HPF)
[2022-08-15 08:26] LABS: Culture Indicated Urine Specimen Cultured
[2022-08-16 12:30] LABS: x Labcorp Estim. Avg Glu (eAG) 111 mg/dL (.); x Labcorp Hemoglobin A1c 5.5 % (4.8-5.6)
== END ==
PROVIDERS: PCP Family Medicine; Referring Provider Orthopaedic Surgery; Visit Provider Orthopaedic Surgery
DX: Z01.818 Encounter for other preprocedural examination (principal); R73.9 Hyperglycemia, unspecified; Z01.812 Encounter for preprocedural laboratory examination; N39.0 Urinary tract infection, site not specified
CPT/HCPCS: 36415; 80048; 81001; 83036; 85025; 87086; 93005

== ENCOUNTER 2022-09-03 08:55 | Day surgery (SDC) | payer MEDICARE, OTHER, SELFPAY ==
[2022-08-27 09:40] VITALS: BMI 27.4
[2022-09-03] VITALS (14 sets, daily range): BP systolic 98–158; BP diastolic 55–85; PULSE 55–77; RESP 11–19; TEMP 36.1–36.8; O2SAT 97–100; BMI 27.4
--- NOTE | 2022-09-03 06:00 | DI.RAD.S_ITS ---
PROCEDURE: XR KNEE RT 1TO2V INDICATIONS: TKA TECHNIQUE: 2 view(s) of the knee acquired. COMPARISON: None. FINDINGS: Bones: Patient is status post knee joint arthroplasty. Hardware components are in expected positions. Visualized bony structures are intact. Soft tissues: Overlying postoperative changes are noted. IMPRESSION: Expected postsurgical change for right knee arthroplasty. Dictated by: Kathy Doran MD, PhD on 09/03/2022 at 14:02 Approved by: Kathy Doran MD, PhD on 09/03/2022 at 14:02
[2022-09-03] MEDS: LACTATED RINGERS 1,000 ML 42 ML IV (09:39)
[2022-09-03] MEDS: ACETAMINOPHEN 325 MG TABLET 975 MG PO (09:41)
[2022-09-03] MEDS: CELECOXIB 200 MG CAPSULE PO (09:42)
[2022-09-03] MEDS: VANCOMYCIN 1,000 MG/200 ML PIGGYBACK 200 MG IV (10:03)
--- NOTE | 2022-09-03 10:39 | PM.PREOP ---
Pre-operative Note Interval Note History & Physical reviewed/Exam performed by Physician: Yes Changes to H&P: No
--- NOTE | 2022-09-03 10:39 | PM.OP.1 ---
Operative Date/Time/Diagnoses Date of procedure: 09/03/22 Time of procedure: 11:20 Pre-op diagnosis: right knee OA, h/o patella fracture Post-op diagnosis: same Procedure & Clinicians Procedure: right total knee arthroplasty Same procedure as scheduled: Yes Indications: The patient has had progressively worsening right knee pain with radiographic changes consistent with arthritis. Non-operative management has failed and the patient has requested total knee replacement. The risks, benefits and alternatives to surgery were discussed with the patient prior to proceeding. Risks discussed included, but were not limited to, failure to relieve pain, stiffness, infection, nerve damage, deep venous thrombosis, pulmonary embolism, stroke, coma, heart attack, permanent paralysis and , as well as the potential need for eventual revision of the prosthetic. Surgeon: Ebonie Mota Stem Teacher: Marcel Carrasco Anesthesia Type: Spinal Operative Notes Findings: Severe right knee osteoarthritis, very soft bone, adequate appearing extensor mechanism Closure Type: primary Specimen(s): none sent Prosthetic devices, grafts, tissues, transplants, or devices: [facility] 2 size 5 femur, size 5 tibia, +10 poly, 35 x 7.5 patella Estimated Blood Loss (mL): 250 Tourniquet time (min): 76 Procedure in detail: The patient was seen in the pre-operative area, where the patient identified the right knee as the operative site and this was marked with my initials. The patient received pre-operative antibiotics, and was taken to the operating room and placed on the operative table in the supine position. After satisfactory anesthesia, a methods time analyst out was performed. The right leg was encircled with a tourniquet about the proximal thigh, and the leg was prepared from the toes to the tourniquet with ChloroPrep in the usual fashion and draped through sterile drapes. The leg was elevated and exsanguinated with Eschmark bandage and the tourniquet inflated to [250] mmHg pressure. The knee was approached through an approximately 18 cm incision centered over the patella and carried into the knee through a medial parapatellar arthrotomy. A portion of the medial and lateral meniscus was resected. Soft tissue was carefully mobilized around the patella the patella was measured with a caliper. Bone was resected from the patella and the patellar height was reconstituted with up an appropriate sized patellar component. A cover was then placed on the patella. A small amount of additional medial and lateral meniscus was resected. The distal femur was cut at 5?. A [+2] cut was used. It looked like an appropriate distal femoral cut and the cut was made without difficulty. An extramedullary guide was used for the tibial cut. 10 mm was resected off the least affected side.The tibia was prepared. The rotation was assessed. The patient was placed in extension residual medial and lateral meniscus as well as any residual bone was carefully resected. [No] additional tibia was resected. Hemostasis was achieved especially posteriorly. Additional local was injected into the posterior capsule. The extension gap was assessed and additional releases for gap balancing were performed as necessary. It was checked with the gap mill hand. The femoral component was trial was placed and the notch was finished. The rotation was assessed and the appropriate size femoral guide was placed on the distal femur and finishing cuts were made. There was no evidence of notching. The anterior, posterior and chamfer cuts were then made. The posterior osteophytes and soft tissues were then removed. The posterior capsule was injected with part of a mixture of 60 ml 0.25% Marcaine mixed with 20 ml Exparel for post operative pain control. The remainder of this mixture was injected into the capsule and subcutaneous tissues during cement curing. The tibial and femoral components were then placed and the knee placed through a range of motion. Range of motion was [0-130], with good stability throughout the range. The trials were then removed, and the tibia was finished. The bone was prepared with pulsatile lavage, and dried with a sponge. Cement was applied and the final prosthetics placed. Excess cement was removed during and after cement curing. A brief Betadine soak was performed. After confirming there was no extruded cement posteriorly, the final tibial insert was placed. The knee was copiously irrigated and the tourniquet deflated. Hemostasis was obtained with the [Aquamantys system]. A drain was placed and brought out superolaterally. The capsule was closed with interrupted nonabsorbable suture. The subcutaneous layer was closed with barbed sutures, and the skin with a running 3-0 V-Lock suture and skin douglas. A zeenat dressing was applied and the patient was taken to recovery having tolerated the procedure well. Complications: none Post-operative Condition: stable Disposition: Acute Care Plan for aftercare: The patient will be maintained on a standard total knee replacement protocol with weight bearing as tolerated. The patient will receive aspirin and sequential compression devices for DVT prophylaxis. The patient will be discharged home when safe for the home environment.
[2022-09-03] MEDS: CEFAZOLIN 2 GM/100 ML PREMIX 100 ML IV ×2 (11:27→18:43)
[2022-09-03] MEDS: TRANEXAMIC ACID 1,000 MG VIAL 2000 MG INJ ×2 (11:40→13:00)
--- NOTE | 2022-09-03 11:48 | SUR.OPER ---
Supine on padded OR bed. Pillow under head, arms secured on padded armboards <90 degree abduction. Safety belt across torso. Non-operative leg secured with tape over blanket over lower leg. Operative leg secured in DeMayo positioner. Foam padded brace at thigh of operative leg.
[2022-09-03] MEDS: BUPIVACAINE LIPOSOME 266 MG/20 ML VIAL INJ (11:55)
[2022-09-03] MEDS: BUPIVACAINE 0.25% (PF) 60 ML, EPINEPHrine 0.3 MG INJ (11:56)
[2022-09-03] MEDS: SODIUM CHLORIDE IRRIG SOLUTION 250 ML, POVIDONE-IODINE SPONGE STICKS 1 APPLIC IRR (11:56)
--- NOTE | 2022-09-03 14:03 | SUR.PHASEI ---
Report called to
--- NOTE | 2022-09-03 14:21 | SUR.PHASEI ---
Patient transferred to the floor with her glasses and belongings bag. She reported hearing aids were at home. Report to Kristie. VS stable. Right knee dressing CDI, FOREST light flashing. Patient reported seeing flashing spots. Otherwise condition stable.
--- NOTE | 2022-09-03 14:22 | PC.NURSE ---
Pt arrives from PACU at 1410 this afternoon. She is A&OX4, VSS, afebrile on RA. She reports decreased sensation to B feet, able to wiggle toes, +2 pedal pulses. Normal sensation to upper legs. FOREST dressing C/D/I, with CARLOS wrap on top, green light flashing. Ice packs applied. Her at bedside supportive. IVF running LR at 100 ml/hr. She denies pain. Call lightl in reach, post op VS, frequent rounding
[2022-09-03] MEDS: IBUPROFEN 400 MG TABLET PO ×3 (15:09→22:13)
[2022-09-03] MEDS: ACETAMINOPHEN 325 MG TABLET 650 MG PO ×2 (15:10→20:47)
[2022-09-03] MEDS: LACTATED RINGERS 1,000 ML 100 ML IV (15:10)
--- NOTE | 2022-09-03 16:06 | PT-IP ANOTE ---
PT russel received. checked on pt and stated that she is still slightly numb on her LE and wants ~ 30 min before moving. Checked back on pt after 30 min and pt stated that now, she is starting to have pain and wants to have pain meds first and for PT to wait again. Informed pt that PT will check back on her tomorrow. Pt agreed.
[2022-09-03] MEDS: OXYCODONE IR 10 MG TABLET PO ×2 (16:17→19:17)
[2022-09-03] MEDS: ASPIRIN EC 81 MG TABLET PO (20:47)
[2022-09-03] MEDS: DOCUSATE 100 MG CAPSULE PO (20:48)
[2022-09-03] MEDS: METOPROLOL ER 50 MG TABLET 75 MG PO (20:48)
[2022-09-03] MEDS: OXYCODONE IR 5 MG TABLET PO (22:13)
--- NOTE | 2022-09-03 23:41 | PC.NURSE ---
Patient is alert and oriented. Breath sounds CTA with RA sat of 97%. HRR w/BP of 158/78; receiving Metoprolol at hs. Denies nausea. BT present but has not yet passed flatus. Up to BSC with walker and 2 assists to urinate and voided 1375cc earlier. Is able to move herself in bed. FOREST dressing to right knee intact and functioning; 2 small spots of dark red drainage noted at distal end of dressing; knee is wrapped with nahum. CMS is intact bilaterally. Is having 4-6 pain in right knee related to surgery and arthritis and has been medicated with Tylenol + Ibuprofen + oxycodone; declines ice pack. Is wearing bilateral calf SCD's. Fall risk score is high and bed alarm is activated.
[2022-09-04 00:39] VITALS: BP 129/72; PULSE 77; RESP 18; TEMP 36.4; O2SAT 97
[2022-09-04] MEDS: LACTATED RINGERS 1,000 ML 100 ML IV (01:53)
[2022-09-04] MEDS: IBUPROFEN 400 MG TABLET PO ×3 (01:56→10:00)
[2022-09-04] MEDS: OXYCODONE IR 10 MG TABLET PO ×4 (01:56→12:39)
[2022-09-04] MEDS: ACETAMINOPHEN 325 MG TABLET 650 MG PO ×2 (01:56→08:16)
[2022-09-04] MEDS: CEFAZOLIN 2 GM/100 ML PREMIX 100 ML IV (03:33)
[2022-09-04 04:04] VITALS: BP 122/68; PULSE 73; RESP 18; TEMP 36.3; O2SAT 97
[2022-09-04 04:55] LABS: Hematocrit 28.1 % (36-46); Hemoglobin 9.6 g/dL (12.0-16.0)
--- NOTE | 2022-09-04 07:49 | P.DS_ITS ---
History of Present Illness History of Present Illness Date Patient Seen: 09/04/22 Time Patient Seen: 07:49 Chief complaint: OPB Narrative: Operative Date/Time/Diagnoses Date of procedure: 09/03/22 Time of procedure: 11:20 Pre-op diagnosis: right knee OA, h/o patella fracture Post-op diagnosis: same Procedure & Clinicians Procedure: right total knee arthroplasty Same procedure as scheduled: Yes Indications: The patient has had progressively worsening right knee pain with radiographic changes consistent with arthritis. Non-operative management has failed and the patient has requested total knee replacement. The risks, benefits and alternatives to surgery were discussed with the patient prior to proceeding. Risks discussed included, but were not limited to, failure to relieve pain, stiffness, infection, nerve damage, deep venous thrombosis, pulmonary embolism, stroke, coma, heart attack, permanent paralysis and , as well as the potential need for eventual revision of the prosthetic. Surgeon: Ebonie Mota Screening Technician: Marcel Carrasco Anesthesia Type: Spinal Operative Notes Findings: Severe right knee osteoarthritis, very soft bone, adequate appearing extensor mechanism Closure Type: primary Specimen(s): none sent Prosthetic devices, grafts, tissues, transplants, or devices: [employer] [place] BCs 2 size 5 femur, size 5 tibia, +10 poly, 35 x 7.5 patella Estimated Blood Loss (mL): 250 Tourniquet time (min): 76 Discharge Providers Provider Discharge Date: 09/04/22 Primary care physician: Aakash Solomon MD Consults: 09/03/22 06:00 Consult to Anesthesiology Routine Comment: Consulting Provider: Anesthesiologist Reason for consultation: Regional block for post operative pain control 09/03/22 14:21 Consult to Discharge Planning Routine Comment: Consult to Occupational Therapy Evaluate & Treat Comment: Physician Instructions: Evaluate and treat Consult to Physical Therapy Evaluate & Treat Comment: Physician Instructions: postop TKA protocol Discharge provider: Adrianne Desouza PA-C Summary Hospital Course Discharge Diagnosis: Right knee osteoarthritis, s/p right total knee arthroplasty Hospital Course: Ms Benitez's hospital course was unremarkable. On the morning of POD# 1 she was c/o right leg pain; this was controlled with oral medication. She was eating and voiding without difficulty. She had not yet been evaluated by PT but had been OOB multiple times since surgery. Exam Vital Signs (past 8 hours): - 09/04/22 00:39 09/04/22 04:04 Temperature 97.6 F 97.4 F L Pulse Rate 77 73 Respiratory Rate 18 18 Blood Pressure 129/72 122/68 Pulse Oximetry 97 97 Oxygen Flow Rate 0 0 Oxygen Delivery Method Room Air Oxygen Flow Rate 0 Narrative Exam Narrative: 5/5 strength in hip flexors, quadriceps, hamstrings, DF, PF, EHL on right. Sensation to light touch intact throughout RLE. Calf soft, compressible, nontender and without palpable cords or masses. She has BLE edema and significant deformity of both feet. FOREST dressing functioning and w/ scant bloody drainage. Objective Labs 09/04/22 04:30 Labs: Laboratory Results - last 24 hr 09/04/22 04:30 Hgb 9.6 L Hct 28.1 L PFSH Medical History (Updated 08/27/22 @ 14:09 by Lana Pollock RN) Anxiety Asthma Borderline high cholesterol Breast cancer Cataracts, bilateral Genetic susceptibility to breast cancer Hearing impaired Herpes (08/27/22) Hiatal hernia History of COVID-19 (03/2020) HTN (hypertension) Low back pain Lung cancer (2017) Muscle strain Osteoarthritis Postmenopausal postcoital bleeding Thyroid disease Surgical History (Updated 09/04/22 @ 07:52 by Adrianne Desouza PA-C) History of ankle surgery History of hysterectomy History of lobectomy of lung (2017) Hx of abdominal surgery Hx of lymph node excision Status post breast lumpectomy Social History household members: spouse Smoking Status: Never smoker alcohol intake: current Discharge Assessment & Plan Assessment and Plan Assessment: Right knee osteoarthritis, s/p right total knee arthroplasty Plan of Treatment: Discharge home after PT if PT agrees. Multimodal pain control - pt is currently on hydrocodone/APAP 5/325 3/day as rx'd by her PCP; we will rx oxycodone for acute post-op pain on top of this. Outpt PT, f/u in office as scheduled in 2 weeks. Discharge Plan Discharge Plan Patient Disposition: Home Discharge orders & Medications Discharge Orders: Discharge (Order); Ordered 09/04/22 Ordered By: Adrianne Desouza Prescriptions: New oxycodone 5 mg Tablet 5 mg PO Q4-6H PRN (Reason: Pain, Moderate (4-6)) Qty: 60 0RF acetaminophen 325 mg Tablet 650 mg PO Q6H PRN (Reason: fever or pain) Qty: 240 0RF aspirin 81 mg Tablet,Delayed Release (Dr/Ec) 81 mg PO BID Qty: 90 0RF docusate sodium 100 mg Capsule 100 mg PO BID PRN (Reason: constipation) Qty: 60 1RF Continued acyclovir 400 MG tablet 400 mg PO TID PRN (Reason: Herpes flare) Qty: 0 hydrocodone-acetaminophen 5-325 mg tablet 1 tab PO QD-TID PRN (Reason: Pain) lidocaine 5 % Adhesive Patch,Medicated 1 patch TOPICAL DAILY Rx Instructions: leave on most painful area for up to 12 hrs ibuprofen 600 mg Tablet 600 mg PO BEDTIME metoprolol succinate 50 mg Tablet Extended Release 24 Hr 75 mg PO BID letrozole 2.5 mg Tablet 2.5 mg PO DAILY Follow up/Referrals: Ebonie Mota MD [Physician] - As previously scheduled (Follow up with Adrianne Desouza PA-C, on 09/20/2022 @ 11:00 am at [facility] in [place].) Aakash Solomon MD [Primary Care Provider] - Diet/Activity/Treatments Diet: Diet as Tolerated Activity: Walk frequently! Cold/Heat Therapy: Ice to knee as needed for pain. Skin/Wound/Dressing Care Report to your healthcare provider any signs of infection, such as:: chills, fever, night sweats, unusual drainage and unusual redness Dressing: May remove CARLOS wrap and shower on 09/06/2022. Leave FOREST dressing in place until follow up in office. Batteries will in 5-7 day, at which point you can disconnect/cut off battery pack and dispose of it. No bathing or otherwise soaking incision. Call the office if the dressing becomes saturated inside. Visit Report/Discharge Packet Instructions: DI for Knee Replacement, Oxycodone Stand Alone Forms: Patient Portal/API, Surgery Discharge Discharge Data Primary Care Provider: Aakash Solomon Attending Provider: Ebonie Mota
[2022-09-04 07:53] VITALS: BP 123/66; PULSE 66; RESP 15; TEMP 36.9; O2SAT 98
[2022-09-04 08:15] VITALS: BP 123/66
[2022-09-04] MEDS: ASPIRIN EC 81 MG TABLET PO (08:15)
[2022-09-04] MEDS: METOPROLOL ER 50 MG TABLET 75 MG PO (08:15)
[2022-09-04] MEDS: DOCUSATE 100 MG CAPSULE PO (08:16)
[2022-09-04] MEDS: LETROZOLE 2.5 MG TABLET PO (08:18)
--- NOTE | 2022-09-04 08:45 | CM.DANOTE ---
DCP: Patient is a 72yo F here following right knee surgery. PCP: Dr. Solomon Payer: Medicare and [facility] STRAINER TENDER entered room and introduced self and role. Patient was A/Ox4 sitting up in bed eating breakfast. Patient reported she's feeling better today and that she was told she would go home this afternoon after PT saw her. Patient reported she has OP PT scheduled for 09/10/[address] [facility]. Patient reports that prior to this surgery, she used a walker and or a cane at home. Patient reports that she's independent with her ADLs and her spouse, Herb ([phone]) is at home to help her through her recovery. Patient's son, Guille Carter ([phone]) lives in [place] but could come down to help if necessary. Plan: Patient will transport home with spouse in POV this afternoon. CM team will continue to follow for needs. WOODY Sanchez Discharge Planning/Care Management CM Discharge Assessment Start: 09/04/22 08:43 Freq: Status: Active Protocol: Document 09/04/22 08:43 (Rec: 09/04/22 08:45 [id number]) Discharge Planning Assessment Assigned Conservation Policy Analyst WOODY Sanchez DPOA/Assigned Designee Name Herb Benitez (spouse) Contact Information [phone] Advance Directives? No History Provided By Patient,Medical Record Prior Living Arrangements House Household Members spouse Independent with ADL's Yes Is patient alert and oriented? Yes DME Already Rented / Owned FWW / Walker,Cane Patient/Family Preference OP PT Therapy Comment OP PT scheduled for 09-10-22 Barriers to Discharge No Discharge Plan Home Transportation Arrangement spouse will drive her home Whiteboard Updated in Patient Room with Yes name and ext. # of Conservation Policy Analyst Review Status In Process Next Review Type Continued Stay Review Pre-Anesthesia Assessment Start: 08/27/22 09:40 Freq: Status: Complete Protocol: Document 08/27/22 09:40 CAB (Rec: 08/27/22 10:45 CAB [id number]) Pre-Anesthesia Assessment PAC Comment Active case of genital herpes, advised pt to contact surgeon 's office Preferred Name Leslie Patient Information Reviewed Via Phone Assessment Assessment Completed With Patient Diagnostic Results BMP/CMP,CBC,EKG,Urinalysis Comment Labs/EKG @ [facility] 08/15/22 Primary Care Provider Aakash Solomon Seen Specialist in Last 12 Months Yes Specialist Seen Oncologist,Orthopedist, Dry Cell And Battery Assembler Comment Pulmonary visit 07/26/21 scanned Primary Language Haitian Painter Spring Required No Height 160.02 cm Weight 70.307 kg Body Mass Index (BMI) 27.4 Hearing Ability Hearing Impaired,Use of Hearing Aid Visual Assist Glasses Dentition Type Teeth, Natural Present Barriers to Learning Visual Comment Loose front right tooth Hx Anesthesia Reactions No: Loose front right tooth Hx Family Anesthesia Reaction No Hx Malignant Hyperthermia No Hx Blood Transfusions No Anesthesia Review Requested No Residential Therapist No alcohol intake current alcohol intake frequency a few times a month Smoking Status Never smoker Substance Use Type does not use Pain Present Pain Reported Musculoskeletal Symptoms Abnormal Gait,Difficulty Walking,Joint Pain,Neck Pain History of Falling (Recent or History of Yes ) Patient is completely paralyzed or No completely immobile Prosthesis or Orthotic Device Cane Mental Status Oriented to own ability Is patient on oxygen? No Does patient have VU/SOB No Hx Sleep Apnea No Currently Taking a Beta Alayna Yes: Metoprolol Can You Climb a Flight of Stairs Without No: Asthma, RLL lobectomy SOB Hx Chest Pain No Hx SOB No Hx Syncope or Dizziness No Anti-Coagulant Therapy No Has a Remediation Consultant No Cardiac Testing No Hx Pacemaker/ICD No Pacemaker Rep Required? No Cardiac Clearance Received Not Applicable Diet Type At Home Regular Dysphagia No Gastrointestinal Symptoms Constipation Chronic UTI No Urinary Catheter Present No Hx Urinary Self Catheterization No Diabetes No HgbA1C 5.5 Date 08/15/22 Patient No Lactating No Hx Drug Resistant Organism No Presence of External or Internal Medical No Devices Received a COVID vaccine? Yes Received all doses? Yes Marital Status Lives With spouse Current Living Arrangements House Number of Floors (Floors) One Floor Support System Spouse Does the Patient Have Assistance After Yes Surgery Patient Discharge Plan Description Return Home Comment Pt advised overnight length of stay per surgeon Feels Safe in Current Environment Yes Been Physically Hurt or Threatened By a No Person in Current Environment Do you have thoughts of harming yourself None or others? Are you currently considering suicide? No Do you have a plan to hurt yourself or No Plan others? Do You Have Any Spiritual Beliefs That No May Affect Your HC Choices? Do You Have Any Cultural Practices That No May Affect Your HC Choices? Comment Mormon Who Can We Speak to About Patient's Care Family, friends Identifying Code for Release of Patient Declines to issue Information Health Care Proxy/Next of Kin Herb () Health Care Proxy Emergency Contact Name Guille (son) Emergency Contact Advance Directives? No Power of Lathe Setup Operator No PAC Instructions Do not shave/clip surgical site,Durable medical equipment ,Medications to take/avoid, Nasal antibiotic,No ETOH/ petroleum product on skin DOS, NPO,Pre-surgical wash,Sensory aids,Sturdy shoes/comfortable clothes,Do not bring valuables and remove jewelry
--- NOTE | 2022-09-04 09:38 | PT.IIE ---
Current Diagnoses Unilateral primary osteoarthritis, right knee (09/03/22) Presence of unspecified artificial knee joint (09/03/22) Surgery Performed Operation Date: 09/03/22 11:15 Actual Procedures p Total Knee Arthroplasty(Right) - Ebonie Mota MD Surgical History (Last Updated 08/27/22 @ 14:14 by Lana Pollock, RN) History of ankle surgery History of hysterectomy History of lobectomy of lung (2018) Hx of abdominal surgery Hx of lymph node excision Status post breast lumpectomy Medical History (Last Updated 08/27/22 @ 14:09 by Lana Pollock, [place]) Anxiety Asthma Borderline high cholesterol Breast cancer Cataracts, bilateral Genetic susceptibility to breast cancer Hearing impaired Herpes (08/27/22) Hiatal hernia History of COVID-19 (03/2020) HTN (hypertension) Low back pain Lung cancer (2017) Muscle strain Osteoarthritis Postmenopausal postcoital bleeding Thyroid disease Physical Therapy Inpatient Evaluation/Re-Eval M1 PT/OT-IP Prior Functional Status Start: 09/04/22 08:33 Freq: NEEDED Status: Active Protocol: Document 09/04/22 09:26 ES (Rec: 09/04/22 09:37 ES [id number]) Medical Review Prior Functional Status Medical History Reviewed Yes Diet/Fluid Consistency Regular Communication Indep Mobility and Gait Indep with cane Activities of Daily Living and IADL's Indep Prior Functional Level (Other details) Able to drive Social History Household Members spouse Living Arrangements House Number of Floors (Floors) One Floor Number of Stairs To Enter/Railing? 1 step to enter Home Environment Standard Height Toilet Home Equipment Front Wheel Walker,Straight Cane,Crutches Employment Status Retired Additional Social History Comment Patient lives with her who is also retired and able to assist. M2 PT-IP Current Condition Start: 09/04/22 08:33 Freq: NEEDED Status: Active Protocol: Document 09/04/22 09:26 ES (Rec: 09/04/22 09:37 ES [id number]) Physical Therapy Current Condition Current Condition Evaluation Date 09/04/22 Treatment Diagnosis S/p R TKA Onset Date 09/03/22 M3 PT-IP Subjective Start: 09/04/22 08:33 Freq: NEEDED Status: Active Protocol: Document 09/04/22 09:26 ES (Rec: 09/04/22 09:37 ES [id number]) Subjective Physical Therapy Visit Type Type Initial Evaluation Visit Start Time 08:45 Visit Stop Time 09:24 Total Visit Minutes 39 Physical Therapy Visit Comments Patient Comments Patient alert in bed, agreeable to work with PT. Stated her plans to be here this afternoon to pick her up. Therapy Pain Assessment Pain When Pain Assessed At Rest Pain Present Pain Present Pain Reported Location Right Knee Intensity 5 Scale Used Numeric (0 - 10) Pain Management Techniques Apply Cold M4 PT-IP Mobility and Gait Start: 09/04/22 08:33 Freq: NEEDED Status: Active Protocol: Document 09/04/22 09:26 ES (Rec: 09/04/22 09:37 ES [id number]) PT-Bed Mobility Assessment Supine to Sit Supine to Sit Independent Sit to Supine Sit to Supine Independent Scooting Scooting to Edge of Bed Independent Scooting Up and Down in Bed Independent PT-Transfer Assessment Sit to and From Stand Sit to and from Stand Independent,Use of Upper Extremities Equipment Transfer Assistive Device Gait Belt,Front Wheeled Walker Orthotic/Prosthetic Devices or Brace: No Transfers Transfer Destination Bed,Toilet Transfer Technique Ambulation Transfer Ability Level of Assist Independent,Use of Upper Extremities Comments Mobility Comments Cued for placing R foot forward during STS on lower surfaces to reduce pain with good recall and follow through from patient the rest of the visit. Gait Assessment Gait Gait Assistance Required: Standby Assistance Distance (Feet) 200 Assistive Devices Assistive Device Gait Belt,Front Wheeled Walker Orthotic/Prosthetic Devices or Brace: No Gait Deviations General Gait Pattern Antalgic,Flexed Trunk Factors Limiting Gait Function Factors Limiting Gait Function Decreased Strength,Limited Range of Motion,Pain Comments Gait Comments Patient ambulated with decreased stance time R, decreased R knee flexion during swing, and decreased step length along with flexed trunk. After cueing for increasing R knee flexion and upright posture, patient able to improve for brief periods. Educated her to continue to work on this at home. Stair Climbing Assessment Evaluation Level of Assist On Stairs Standby Assistance Devices Stair Climbing Assistive Devices Front Wheel Walker Technique/Endurance Stair Climbing Direction Ascend and Descend Stair Climbing Technique Step to Step Number of Steps Climbed 1 Query Text: Stair Climbing Set # Repetitions (reps) 2 Comments Stair Climbing Comments Instructed patient in FWW placement and for stepping close to step prior to lifting FWW to reduce fall risk. Required cues initially for sequencing LE's, then able to demonstrate without cues. PT-Balance Assessment Sitting Balance and Reactions Static Sitting Balance Ability Normal Dynamic Sitting Balance Ability Normal Standing Balance and Reactions Static Standing Balance Ability Good Dynamic Standing Balance Ability Good Device Used FWW M5 PT-IP Objective Assessments Start: 09/04/22 08:33 Freq: NEEDED Status: Active Protocol: Document 09/04/22 09:26 ES (Rec: 09/04/22 09:37 ES [id number]) Orientation Orientation/Cognition Level of Alertness Alert Orientation Name,Age,Birthday,Month,Date, Year,Day of Week,Place, Situation Language Function Ability No Deficits Noted Safety Awareness Understands Safety Issues Memory Description No Deficits Noted Gross Range of Motion Upper Extremity ROM Assessment Within Functional Limits Lower Extremity ROM Assessment Right Impaired Impairments R knee flexion 10-80 degrees Strength Upper Extremity Strength Assessment Within Functional Limits Lower Extremity Strength Assessment Right Impaired Comments Strength Comments Fair quad activation R, able to perform SLR with minimal extensor lag. Coordination Assessment Gross Coordination Gross Coordination WNL Sensation Assessment Sensation Gross Sensation WNL M6 PT-IP Treatment Start: 09/04/22 08:33 Freq: NEEDED Status: Active Protocol: Document 09/04/22 09:26 ES (Rec: 09/04/22 09:37 ES [id number]) Physical Therapy Treatment Exercises Exercises Ankle Pumps,Quad Sets,Heel Slides,Straight Leg Raises, Short Arc Quads,Passive Knee Extension Hang,Seated Knee Flexion/Extension Education Education Provided Precautions,Weight Bearing Status,Post-Op Packet,Safety M7 PT-IP Assessment and Plan Start: 09/04/22 08:33 Freq: NEEDED Status: Active Protocol: Document 09/04/22 09:26 ES (Rec: 09/04/22 09:37 ES [id number]) PT Summary Assessment and Plan Potential Rehabilitation Potential Good Status of Condition at Evaluation Stable Summary Impairments Pain,ROM,Strength,Transfers, Gait Assessment Summary Patient is a 72 year old female POD #1 s/p R TKA. She demonstrates decreased R knee ROM though states she had limited motion prior to surgery. She was able to demonstrate good understanding of TKA HEP and post-op instructions with extra time spent explaining to patient. She was at supervision level for gait for cueing for improved gait pattern, and at indep level for bed mobility and transfers with FWW. She is safe to d/c home with 's assistance from PT perspective; no further skilled PT indicated during hospital stay. Frequency of Treatment Frequency Of Treatment Discharge Weight Bearing Status Weight Bearing Status Weight Bear as Tolerated Recommendations To Nursing Amount of Assist Needed Standby Assistance Discharge Recommendations PT Discharge Recommendations Home with Assistance, Outpatient PT Transportation Needs at Discharge Private Vehicle
--- NOTE | 2022-09-04 10:11 | OT.IP.EVAL ---
Current Diagnoses Unilateral primary osteoarthritis, right knee (09/03/22) Presence of unspecified artificial knee joint (09/03/22) Surgery Performed Operation Date: 09/03/22 11:15 Actual Procedures p Total Knee Arthroplasty(Right) - Ebonie Mota MD Past Medical History (Last Updated 08/27/22 @ 14:09 by Lana Pollock, RN) Anxiety Asthma Borderline high cholesterol Breast cancer Cataracts, bilateral Genetic susceptibility to breast cancer Hearing impaired Herpes (08/27/22) Hiatal hernia History of COVID-19 (03/2020) HTN (hypertension) Low back pain Lung cancer (2018) Muscle strain Osteoarthritis Postmenopausal postcoital bleeding Thyroid disease Surgical History (Last Updated 08/27/22 @ 14:14 by Lana Pollock, RN) History of ankle surgery History of hysterectomy History of lobectomy of lung (2017) Hx of abdominal surgery Hx of lymph node excision Status post breast lumpectomy Occupational Therapy Inpatient Evaluation/Re-Eval M1 PT/OT-IP Prior Functional Status Start: 09/04/22 08:33 Freq: NEEDED Status: Complete Protocol: Document 09/04/22 09:26 ES (Rec: 09/04/22 09:37 ES [id number]) Medical Review Prior Functional Status Medical History Reviewed Yes Diet/Fluid Consistency Regular Communication Indep Mobility and Gait Indep with cane Activities of Daily Living and IADL's Indep Prior Functional Level (Other details) Able to drive Social History Household Members spouse Living Arrangements House Number of Floors (Floors) One Floor Number of Stairs To Enter/Railing? 1 step to enter Home Environment Standard Height Toilet Home Equipment Front Wheel Walker,Straight Cane,Crutches Employment Status Retired Additional Social History Comment Patient lives with her who is also retired and able to assist. M1 PT/OT-IP Prior Functional Status Start: 09/04/22 11:49 Freq: NEEDED Status: Active Protocol: Document 09/04/22 10:11 CCC (Rec: 09/04/22 12:06 CCC [id number]) Medical Review Prior Functional Status Medical History Reviewed Yes Diet/Fluid Consistency Regular Communication Indep Mobility and Gait Indep with cane Activities of Daily Living and IADL's Indep Prior Functional Level (Other details) Able to drive Social History Household Members spouse Living Arrangements House Number of Floors (Floors) One Floor Number of Stairs To Enter/Railing? 1 step to enter Home Environment Standard Height Toilet,Tub/ Shower Home Equipment Front Wheel Walker,Straight Cane,Crutches,Hand Held Shower Employment Status Retired Additional Social History Comment Patient lives with her who is also retired and able to assist. M2 OT-IP Current Condition Start: 09/04/22 11:49 Freq: Status: Active Protocol: Document 09/04/22 10:11 [facility] (Rec: 09/04/22 12:06 [facility] [id number]) Occupational Therapy Current Condition Current Condition Evaluation Date 09/04/22 Treatment Diagnosis S/p R TKA M3 OT- IP Subjective and Pain Start: 09/04/22 11:49 Freq: Status: Active Protocol: Document 09/04/22 10:11 [facility] (Rec: 09/04/22 12:06 [facility] [id number]) OT- Subjective Occupational Therapy Visit Type Type Initial Evaluation Visit Start Time 10:11 Visit Stop Time 10:52 Total Visit Minutes 41 Occupational Therapy Visit Comments Patient Comments Pt agreed to work with OT. Patient/Caregiver Goals TO go home. OT Pain Assessment Pain When Pain Assessed At Rest Pain Present Pain Present Pain Reported Location Right Knee Intensity 8 Scale Used Numeric (0 - 10) M4 OT- IP ADL's Start: 09/04/22 11:49 Freq: Status: Active Protocol: Document 09/04/22 10:11 [facility] (Rec: 09/04/22 12:06 [facility] [id number]) OT ADL-Dressing General Eval Lower Body Dressing Ability Minimal Assistance,Moderate Assistance Comments OT Dressing Comments Pt educated to lino her right side first and the take it out last to increased ease for dressing needs. Pt shown and practiced use of sock aid. Pt feet are wide and therefore will benefit from the 5 inch sock aid. OT ADL-Toileting Comments OT Toileting Comments Suggested pt wear pads/brief so not having to hurry to the toilet at night or taper her liquids towards night time. OT ADL-Bathing Comments OT Bathing Comments Pt has a tub/shower and suggested a tub bench would be easier at this time to get into and out of the tub. Pt states her has been assisting her. M5 OT- IP IADL's Start: 09/04/22 11:49 Freq: Status: Active Protocol: Document 09/04/22 10:11 [facility] (Rec: 09/04/22 12:06 [facility] [id number]) OT-Instrumental Activities of Daily Living Deficits IADL Deficits Identified Deficits Home Safety Awareness Awareness of Need for Assistance at Home Good Awareness Ability to Problem Solve Emergency Able to Problem Solve Situations Home Safety Comments Pt has a supportive that will assist with her needs . Meal Preparation Meal Preparation Caregiver Provides Assist Textile Screen Printer Textile Screen Printer Caregiver Provides Assist M6 OT- IP Functional Cognition Start: 09/04/22 11:49 Freq: Status: Active Protocol: Document 09/04/22 10:11 [facility] (Rec: 09/04/22 12:06 [facility] [id number]) Cognitive Factors Limiting Selfcare Function Cognitive Ability Level of Alertness Alert Patient Orientation Name,Age,Birthday,Month,Date, Year,Day of Week,Place, Situation Attention Span Ability Capable of Focused Attention, Capable of Sustained Attention Ability to Follow Commands Able to Follow Multi-Step Commands Cognitive Comments Cognitive Assessment Comments Intact OT- Vision and Hearing OT- Vision Assessment Visual Acuity Glasses All The Time M7 OT- IP Mobility and Balance Start: 09/04/22 11:49 Freq: Status: Active Protocol: Document 09/04/22 10:11 [facility] (Rec: 09/04/22 12:06 [facility] [id number]) OT- Bed Mobility Assessment Supine to Sit Supine to Sit Assist Standby Assistance Sit to Supine Sit to Supine Assist Standby Assistance OT-Transfer Assessment Comments Mobility Comments Pt having to use her hands to assist to get her right LE into and out of the bed at this time. OT- Balance Assessment Sitting Balance and Reactions Static Sitting Balance Ability Normal Dynamic Sitting Balance Ability Good M9 OT- IP Assessment and Plan Start: 09/04/22 11:49 Freq: Status: Active Protocol: Document 09/04/22 10:11 [facility] (Rec: 09/04/22 12:06 [facility] [id number]) OT Summary Assessment and Plan Potential Rehabilitation Potential Excellent Analytic Complexity at Evaluation Low Summary OT Impairments Range of Motion,Strength, Balance,Functional Mobility, Dressing,Toileting,Bathing, Shower Transfers Progress Towards Goals Progressing Toward Goals Assessment Summary Pt low complexity and able to go over LB dressing needs, toileting suggestions for safety and to look at getting a tub bench vs shower chair for the tub/shower to increased her safety and independence. Pt looking to get LB dressing equipment from [employer] tomorrow. Pt's to assist with her needs at home. Goals Dressing Goal Independent Toileting Goal Independent Bathing Goal Standby Assistance Shower Transfer Goal Standby Assistance Days to Meet Goals 3 Frequency of Treatment Frequency Of Treatment Once a Day Treatment Plan OT Treatment Plan ADL Training,Functional Mobility,Patient/Family Education,Discharge Planning Discharge Recommendations OT Discharge Recommendations Home with Assistance, Outpatient PT Home Equipment Needs tub bench/shower chair, LB dressing equipment Transportation Needs at Discharge Private Vehicle
--- NOTE | 2022-09-04 13:15 | PC.NURSE ---
Pt is dressed and ready to be discharged home with Spouse. Spouse is at the bedside. IV has been removed. Went over d/c instructions with Pt and Spouse-discussed d/c meds, time of last dose, reviewed stroke education, s/s of infection, FOREST use, and follow up. Reminded Pt to not drive until cleared by Dr. Mota or while taking narcotics and to drink plenty of fluids to prevent constipation or dehydration. Pt and Spouse denied further questions and Pt was discharged out to POV via w/c by [facility] [facility] with Spouse and all belongings.
== END 2022-09-04 13:43 | disposition home or self-care (01) ==
LOC: OR 09:17 → AC 09:18
PROVIDERS: PCP Family Medicine; Referring Provider Orthopaedic Surgery; Visit Provider Orthopaedic Surgery
PROC: 0SRC0JZ Replacement of Right Knee Joint with Synthetic Substitute, Open Approach (ICD-10-PCS; CPT 27447; principal; 2022-09-03 11:15)
DX: M17.11 Unilateral primary osteoarthritis, right knee (principal)
CPT/HCPCS: 27447; 36415; 73560; 82962; 85014; 85018; 97161; 97165; 97535; C1776; C9290; J0171; J0690; J1100; J2250; J2405; J2704; J3010

== ENCOUNTER → 2022-09-26 16:22 | Outpatient (CLI) | payer MEDICARE, OTHER, SELFPAY ==
[2022-09-03 15:17] VITALS: BMI 27.4
--- NOTE | 2022-09-26 16:24 | DI.RAD.S_ITS ---
PROCEDURE: XR FOOT RT MIN 3V INDICATIONS: R foot pain TECHNIQUE: 3 views of the foot were acquired. COMPARISON: None. FINDINGS: Bones: Marked hallux valgus with bony bunion formation. Tarsometatarsal joint space narrowing with associated osteophytosis. Hammertoe deformities the 2nd through 4th digits. Soft tissues: No tibiotalar joint effusion. Achilles tendon appears normal. IMPRESSION: Marked midfoot osteoarthritis. Marked hallux valgus with bony bunion formation. Dictated by: Wisam Cam M.D. on 09/26/2022 at 17:04 Approved by: Wisam Cam M.D. on 09/26/2022 at 17:05
== END ==
PROVIDERS: PCP Family Medicine; Referring Provider Family Medicine; Visit Provider Family Medicine
DX: M19.071 Primary osteoarthritis, right ankle and foot (principal); M20.11 Hallux valgus (acquired), right foot; M21.611 Bunion of right foot; M79.671 Pain in right foot
CPT/HCPCS: 73630

== ENCOUNTER → 2023-04-01 | Outpatient (CLI) | payer MEDICARE, OTHER, SELFPAY ==
[2022-09-03 15:17] VITALS: BMI 27.4
--- NOTE | 2023-04-01 11:53 | DI.RAD.S_ITS ---
PROCEDURE: XR FOREARM RT 2V INDICATIONS: fall TECHNIQUE: 2 views of the forearm were acquired. COMPARISON: None. FINDINGS: Bones: Comminuted and displaced fracture of the olecranon. No suspicious bony lesions. Diffusely decreased osseous mineralization. Soft tissues: No suspicious soft tissue calcifications or masses. IMPRESSION: Comminuted and displaced fracture of the olecranon. Dictated by: Shawn Gil M.D. on 04/02/2023 at 9:08 Approved by: Shawn Gil M.D. on 04/02/2023 at 9:10
--- NOTE | 2023-04-01 11:53 | DI.RAD.S_ITS ---
PROCEDURE: XR ELBOW RT MIN 3V INDICATIONS: fall TECHNIQUE: 3 views of the elbow were acquired. COMPARISON: None. FINDINGS: Bones: Comminuted and displaced fracture of the olecranon with intra-articular extension. No suspicious bony lesions. Soft tissues: Moderate elbow joint effusion. No suspicious soft tissue calcifications. IMPRESSION: Comminuted and displaced fracture of the olecranon with intra-articular extension. Dictated by: Shawn Gil M.D. on 04/02/2023 at 9:10 Approved by: Shawn Gil M.D. on 04/02/2023 at 9:10
== END ==
PROVIDERS: PCP Family Medicine; Referring Provider Family Medicine; Visit Provider Family Medicine
DX: S52.031A Displaced fracture of olecranon process with intraarticular extension of right ulna, initial encounter for closed fracture (principal); M25.521 Pain in right elbow; M79.601 Pain in right arm; W19.XXXA Unspecified fall, initial encounter
CPT/HCPCS: 73080; 73090

== ENCOUNTER → 2023-04-28 13:17 | Outpatient (CLI) | payer MEDICARE, OTHER, SELFPAY ==
[2022-09-03 15:17] VITALS: BMI 27.4
[2023-04-28 13:55] LABS: Add Manual Diff / Slide Review NO; Basophils Absolute Auto 0 /uL (0-100); Basophils Percent Auto 0.6 % (0-2); Eosinophils Absolute Auto 100 /uL (0-450); Eosinophils Percent Auto 2.4 % (2-4); Hematocrit 33.2 % (36-46); Hemoglobin 11.4 g/dL (12.0-16.0); Lymphocytes Absolute Auto 1500 /uL (1100-4500); Lymphocytes Percent Auto 27.4 % (25-40); Mean Corpuscular HGB Conc 34.3 % (30-36); Mean Corpuscular Hemoglobin 32.9 PG (26-34); Mean Corpuscular Volume 95.9 fL (80-100); Monocytes Absolute Auto 400 /uL (0-900); Monocytes Percent Auto 7.7 % (3-14); Neutrophils Absolute Auto 3300 /uL (1500-7000); Neutrophils Percent Auto 61.9 % (50-75); Platelet Count 251 X10^3/uL (150-400); Red Blood Cell Count 3.46 X10^6/uL (4.0-5.2); Red Cell Distribution Width 13.5 % (11.6-14.8); White Blood Cell Count 5.3 X10^3/uL (4.5-11.0)
== END ==
PROVIDERS: PCP Family Medicine; Referring Provider Internal Medicine Hematology & Oncology; Visit Provider Internal Medicine Hematology & Oncology
DX: C50.912 Malignant neoplasm of unspecified site of left female breast (principal); Z17.0 Estrogen receptor positive status [ER+]
CPT/HCPCS: 36415; 85025

== ENCOUNTER → 2023-05-02 14:49 | Outpatient (CLI) | payer MEDICARE, OTHER, SELFPAY ==
[2022-09-03 15:17] VITALS: BMI 27.4
--- NOTE | 2023-05-02 14:51 | DI.MG.S_ITS ---
BILATERAL DIGITAL SCREENING MAMMOGRAM 3D/2D WITH CAD: 05/02/2023 CLINICAL: Routine screening. Personal history of left breast cancer. Family history of breast cancer. Comparison is made to exams dated: 05/01/2022 mammogram, 04/25/2021 mammogram, and 03/16/2020 mammogram - [facility]. Both breasts are heterogeneously dense, which may obscure small masses (category c / 51-75% glandular tissue). Current study was also evaluated with a Computer Aided Detection (CAD) system. The left breast has post-operative findings. There is a possible focal asymmetry in the left breast at 9 o'clock middle depth. This is more prominent and increased in size. No other significant masses, calcifications, or other findings are seen in either breast. IMPRESSION: INCOMPLETE: NEEDS ADDITIONAL IMAGING EVALUATION The possible focal asymmetry in the left breast is indeterminate. Additional views with possible ultrasound are recommended. This exam was interpreted at Station ID: [id number]. NOTE: For mammograms, a report in lay terms will be sent to the patient. Approximately 15% of breast malignancies will not be visualized mammographically. In the management of a palpable breast mass, a negative mammogram must not discourage biopsy of a clinically suspicious lesion. Electronically Signed By: Chris riley/barbara:05/03/2023 08:42:07 copy to: Andrea Gonzalez letter sent: Additional Imaging Needed ACR BI-RADS Category 0: Incomplete [id number]
== END ==
PROVIDERS: PCP Family Medicine; Referring Provider Family Medicine; Visit Provider Family Medicine
DX: Z12.31 Encounter for screening mammogram for malignant neoplasm of breast (principal); Z85.3 Personal history of malignant neoplasm of breast; Z80.3 Family history of malignant neoplasm of breast; R92.333 Mammographic heterogeneous density, bilateral breasts
CPT/HCPCS: 77063; 77067

== ENCOUNTER → 2023-05-23 | Outpatient (CLI) | payer MEDICARE, OTHER, SELFPAY ==
[2022-09-03 15:17] VITALS: BMI 27.4
--- NOTE | 2023-05-23 11:49 | DI.MG.S_ITS ---
UNILATERAL LEFT DIGITAL DIAGNOSTIC MAMMOGRAM 3D/2D WITH ADDITIONAL VIEWS: 05/23/2023 CLINICAL: Additional evaluation requested from prior study. Comparison is made to exams dated: 05/02/2023 mammogram, 05/01/2022 mammogram, and 04/25/2021 mammogram - [facility]. The left breast is heterogeneously dense, which may obscure small masses (category c / 51-75% glandular tissue). The left breast has post-operative findings. The previously described possible focal asymmetry in the left breast at 9 o'clock middle depth is not reproduced and presumably represented superimposed breast tissue. This is not seen in additional views and is consistent with summation artifact. No other significant masses or calcifications are seen in the breast. IMPRESSION: INCOMPLETE: NEEDS ADDITIONAL IMAGING EVALUATION An ultrasound is recommended to confirm the no longer seen focal asymmetry in the left breast middle depth which is scheduled to immediately follow this exam. This exam was interpreted at Station ID: [id number]. NOTE: For mammograms, a report in lay terms will be sent to the patient. Approximately 15% of breast malignancies will not be visualized mammographically. In the management of a palpable breast mass, a negative mammogram must not discourage biopsy of a clinically suspicious lesion. Electronically Signed By: Chris Sommers M.D. aty/:05/23/2023 13:11:58 copy to: Andrea VU BI-RADS Category 0: Incomplete [id number]
--- NOTE | 2023-05-23 11:50 | DI.US.S_ITS ---
ULTRASOUND OF LEFT BREAST: 05/23/2023 CLINICAL: Patient returns today to evaluate a focal asymmetry in the left breast. Comparison is made to exams dated: 05/23/2023 mammogram, 05/02/2023 mammogram, 05/01/2022 mammogram, 04/25/2021 mammogram, 03/16/2020 mammogram, and 08/25/2019 [facility] [place] [facility]. Color flow and real-time ultrasound of the left breast were performed. [place] scale images of the real-time examination were reviewed. The left breast has stable post-operative findings with rim calcifications as noted on comparison mammograms. No significant abnormalities were seen sonographically in the left breast. IMPRESSION: NEGATIVE There is no sonographic evidence of malignancy. There is no abnormality seen in the left breast to correspond with the now resolved mammography finding. A 1 year screening mammogram is recommended. Findings and recommendations were conveyed to the patient during today's evaluation. This exam was interpreted at Station ID: [id number]. Electronically Signed By: Chris Sommers M.D. at/:05/26/2023 18:17:34 copy to: Andrea Gonzalez letter sent: Normal Exam Ultrasound BI-RADS: 1 Negative
== END ==
LOC: MAMMO 11:49
PROVIDERS: PCP Family Medicine; Referring Provider Internal Medicine Hematology & Oncology; Visit Provider Internal Medicine Hematology & Oncology
DX: R92.2 Inconclusive mammogram; C50.912 Malignant neoplasm of unspecified site of left female breast; R92.332 Mammographic heterogeneous density, left breast; Z17.0 Estrogen receptor positive status [ER+]
CPT/HCPCS: 76642; 77065; G0279

== ENCOUNTER → 2023-08-27 07:26 | Outpatient (CLI) | payer MEDICARE, OTHER, SELFPAY ==
[2022-09-03 15:17] VITALS: BMI 27.4
--- NOTE | 2023-08-27 07:27 | DI.US.S_ITS ---
PROCEDURE: US THYROID INDICATIONS: Nontoxic single thyroid nodule TECHNIQUE: Real-time scanning was performed of the thyroid gland, with image documentation. COMPARISON: [facility], US, THYROID, 07/04/2016, 14:02. FINDINGS: Thyroid: Right lobe measures 6.5 x 1.8 x 1.7 cm. Left lobe measures 5.9 x 3.3 x 2.6 cm. Isthmus is 0.6 cm thick. Echotexture is heterogeneous. Nodule number: 1 Location: Medial aspect of inferior right thyroid lobe Size: 4.0 x 1.6 x 2.6 cm, new since previous study. Composition: Predominantly solid Echogenicity: Hypoechoic Shape: Wider than tall Margins: Irregular Echogenic foci: None Total points: 6 ACR TI-RADS category: Moderately suspicious Nodule number: 2 Location: Lateral aspect of lower pole right thyroid lobe Size: 1.6 x 0.8 x 1.1 cm, new since prior study. Composition: Predominantly solid Echogenicity: Hypoechoic Shape: Wider than tall Margins: Smooth Echogenic foci: Non Total points: 4 ACR TI-RADS category: Moderately suspicious. Nodule number: 3 Location: Inferior aspect of isthmus Size: 2.2 x 2.2 x 2.6 cm. New since previous study. Composition: Predominantly solid Echogenicity: Hypoechoic Shape: Wider than tall Margins: Irregular Echogenic foci: None Total points: 6 ACR TI-RADS category: Moderately suspicious Nodule number: 4 Location: Mid to lower pole left thyroid lobe Size: 5.2 x 3.1 x 3.4 cm, previously 3.8 x 2.6 x 3 cm. Composition: Predominantly solid Echogenicity: Hypoechoic Shape: Wider than tall Margins: Irregular Echogenic foci: Non Total points: 6 ACR TI-RADS category: Moderately suspicious IMPRESSION: 1. 4 moderately suspicious nodule seen in bilateral thyroid lobes as described above. Consider fine-needle aspiration of the 2 largest nodule (nodule 1 and 4) for further evaluation. ACR TI-RADS definitions and recommendations: TI-RADS 1 (benign): 0 points. FNA not needed. TI-RADS 2 (not suspicious): 2 points. FNA not needed. TI-RADS 3 (mildly suspicious): 3 points. * FNA if 2.5 cm or larger, follow up if 1.5 cm or larger (at 1, 3, and 5 years). TI-RADS 4 (moderately suspicious): 4-6 points. * FNA if 1.5 cm or larger, follow up if 1 cm or larger (at 1, 2, 3, and 5 years). TI-RADS 5 (highly suspicious): 7 points or more. * FNA if 1 cm or larger, follow up if 0.5 cm or larger (every year for 5 years). Dictated by: Jayce Wagner M.D. on 08/27/2023 at 9:39 Approved by: Jayce Wagner M.D. on 08/27/2023 at 9:44
--- NOTE | 2023-09-16 | PATH_ITS ---
Note [facility] Accession Number: [id number] TESTS RESULT FLAG UNITS REF RANGE LAB Clinician Provided Cytology Information No. of containers..01 Other (Miscellaneous) No. of containers..02 Previously Prepared Cytology Slide Source: RIGHT THYROID NODULE 1 DIAGNOSIS: RIGHT THYROID NODULE 1 BENIGN. B[place]ES[place] CATEGORY II. SPECIMEN CONSISTS OF BENIGN FOLLICULAR CELLS, HEMOSIDERIN-LADEN MACROPHAGES, COLLOID, AND BLOOD. THIS PATTERN IS CONSISTENT WITH FOLLICULAR NODULAR DISEASE. Pathologist ICD10: E04.1 Signed out by: Lena Martinez MD, Pathologist NPI- [id number] Performed by: Cameron Joyce, [facility] Specialist ([facility]) Gross description: 30 CC, RED, CLEAR RECIEVED: IN CYTOLYT WITH 6 ALCOHOL FIXED AND 6 QUICK STAINED SLIDES ALSO 1 RNA VIAL WILL ON 03-25-2025.VO /VDU 09/17/2023 0534 Local FLAG LEGEND: L-Low Normal,H-High Normal,LL-Alert Low,HH-Alert High <-Panic Low,>-Panic High,A-Abnormal,AA-Critical Abnormal Performed at: 01 =[facility] [facility], [place] [address] Esvin Randolph MD, Performed at: [address] [facility], [place], [place] [id number] MD Esvin Randolph MD Phone: [phone]
== END ==
PROVIDERS: PCP Family Medicine; Referring Provider Family Medicine; Visit Provider Family Medicine
DX: E04.2 Nontoxic multinodular goiter (principal)
CPT/HCPCS: 76536

== ENCOUNTER → 2023-09-16 07:23 | Outpatient (CLI) | payer MEDICARE, OTHER, SELFPAY ==
[2022-09-03 15:17] VITALS: BMI 27.4
--- NOTE | 2023-09-16 | DI.US.S_ITS ---
PROCEDURE: US FINE NEEDLE ASPIRATION INDICATIONS: THYROID FINE NEEDLE ASPIRATION LEFT SIDE TECHNIQUE: The indications, alternatives, benefits, risks, and complications of the procedure were explained to the patient. Written informed consent was obtained and placed in the chart. The thyroid region was examined sonographically and a site was chosen for ultrasound guided percutaneous sampling. The skin was prepared and draped in the usual fashion, and anesthetized with 1% lidocaine infiltrated from the skin down to the thyroid gland. Multiple passes were then performed, with contents emptied into an appropriate pathology specimen container. A bandage was applied to the area of access at completion of the study. COMPARISON: None. FINDINGS: Location(s) of lesion(s) sampled: Left thyroid lobe [place]: 25 gauge hypodermic needles. Number of passes: 6 Medications: 1% lidocaine for local anaesthesia. Complications: None. IMPRESSION: Successful ultrasound-guided thyroid nodule fine needle aspiration, with cytology results pending. Please see chart below for management recommendations based on cytology results. Note: The right thyroid lobe nodule was not seen on today's examination. [place] [facility] ReportingRecommendationsNon-diagnostic* Repeat US-guided FNA, with on-site cytology evaluation if possible. * Repeated non-diagnostic nodules without high suspicion US features: close observation vs surgical consult. * Consider surgery if nodule has high suspicion US features, grows >20% in 2 dimensions on followup, or patient has clinical risk factors for malignancy. Benign* If nodule has high suspicion US features: repeat US and FNA within 12 months. * If nodule has low to intermediate suspicion US features: repeat US at 12-24 months. If nodule grows (20% increase in at least 2 dimensions, with minimal increase of 2 mm or >50% change in volume), or development of new suspicious US features, then repeat FNA or continue followup. * If nodule has very low suspicion US features: followup US at >24 months. Atypia of undetermined significance, follicular lesion of undetermined significanceRepeat FNA, molecular testing, followup US, or surgical consult.Follicular neoplasm, suspicious for follicular neoplasmSurgical consult; also consider molecular testing. Suspicious for malignancySurgical consult.MalignantSurgical consult. Dictated by: Wisam Cam M.D. on 09/16/2023 at 9:12 Approved by: Wisam Cam M.D. on 09/16/2023 at 9:13
== END ==
PROVIDERS: PCP Family Medicine; Referring Provider Family Medicine; Visit Provider Family Medicine
DX: E04.2 Nontoxic multinodular goiter (principal)
CPT/HCPCS: 10005

== ENCOUNTER → 2023-11-28 14:48 | Outpatient (CLI) | payer MEDICARE, OTHER, SELFPAY ==
[2022-09-03 15:17] VITALS: BMI 27.4
[2023-11-28 15:41] LABS: Troponin I < 0.012 ng/mL (0.01-0.034)
== END ==
PROVIDERS: PCP Family Medicine; Referring Provider Family Medicine; Visit Provider Family Medicine
DX: R07.89 Other chest pain (principal)
CPT/HCPCS: 36415; 84484

== ENCOUNTER → 2023-12-05 15:54 | Outpatient (CLI) | payer MEDICARE, OTHER, SELFPAY ==
[2022-09-03 15:17] VITALS: BMI 27.4
--- NOTE | 2023-12-05 15:57 | DI.RAD.S_ITS ---
PROCEDURE: XR KNEE LT 3V INDICATIONS: SPRAIN TECHNIQUE: 3 views of the knee were acquired. COMPARISON: [facility], CR, XR KNEE RT 1TO2V, 09/03/2022, 13:26. FINDINGS: Bones: No fractures or dislocations. No suspicious bony lesions. Soft tissues: Moderate joint effusion. No suspicious soft tissue calcifications. IMPRESSION: Moderate medial compartment joint space narrowing. Moderate joint effusion Approved by: Abhinav Gordon M.D. on 12/09/2023 at 18:03
--- NOTE | 2023-12-05 15:57 | DI.RAD.S_ITS ---
PROCEDURE: XR ANKLE LT MIN 3V INDICATIONS: SPRAIN TECHNIQUE: 3 views of the ankle were acquired. COMPARISON: None. FINDINGS: Bones: Generalized decreased osseous mineralization noted. Healed distal fibular fracture with associated cortical sideplate and screws. Ankle mortise is maintained. Intertarsal degenerative changes Soft tissues: No tibiotalar joint effusion. Achilles tendon appears normal. IMPRESSION: Healed instrumented distal fibular fracture. No acute fracture or hardware failure Approved by: Abhinav Gordon M.D. on 12/09/2023 at 18:04
== END ==
PROVIDERS: PCP Family Medicine; Referring Provider Registered Nurse; Visit Provider Registered Nurse
DX: S93.402A Sprain of unspecified ligament of left ankle, initial encounter (principal); S83.92XA Sprain of unspecified site of left knee, initial encounter; M25.462 Effusion, left knee; W19.XXXA Unspecified fall, initial encounter; Z87.81 Personal history of (healed) traumatic fracture
CPT/HCPCS: 73562; 73610

== ENCOUNTER → 2024-01-28 12:32 | Outpatient (CLI) | payer MEDICARE, OTHER, SELFPAY ==
[2022-09-03 15:17] VITALS: BMI 27.4
--- NOTE | 2024-01-28 12:34 | DI.CT.S_ITS ---
PROCEDURE: CT LE LT W CON INDICATIONS: SPRAIN LT ANKLE TECHNIQUE: Noncontrast 1-1.5 mm axial sections acquired from above the tibiotalar joint to the bottom of the calcaneus, with coronal and sagittal reformats. COMPARISON: [facility] [place], CR, XR ANKLE 3 VIEWS WEIGHT BEARING LEFT, 01/23/2024, 15:03. [facility], CT, CT LE RT WO CON, 02/06/2022, 9:39. FINDINGS: Image quality: Excellent. Bones: Plate and screw fixation of the distal fibula. The 2 most distal screws are slightly proud, and extends into the articulation between the lateral malleolus and the lateral talus dome. No periprosthetic lucency to suggest loosening. Chondrocalcinosis about the tibiotalar joint, representing CPPD arthropathy. multiple small heterotopic ossification about the expected location of the anterior tibiofibular ligament, representing prior injury. Metatarsal adductus. Marked valgus deviation at the first through 4th metatarsophalangeal joint. Moderate degenerative changes of the 1st and the 3rd metatarsophalangeal joint. No acute fracture. Severe degenerative changes of the midfoot. Soft tissues: Extensive vascular calcification of the anterior and the posterior tibialis. Severe tenosynovitis of the flexor digitorum longus at the anterior ankle. IMPRESSION: 1. Plate and screw fixation of the distal fibula with 2 proud screws. 2. CPPD arthropathy about the tibiotalar joint. 3. Metatarsal adductus with marked valgus deviation at the 1st through 4th metatarsophalangeal joint. 4. Severe degenerative changes of the midfoot. 5. Severe tenosynovitis of the flexor digitorum longus at the anterior ankle, incompletely evaluated. Recommend further evaluation with MRI ankle. Dictated by: Sue Roldan M.D. on 01/28/2024 at 15:04 Approved by: Sue Roldan M.D. on 01/28/2024 at 15:16
== END ==
PROVIDERS: PCP Family Medicine; Referring Provider Orthopaedic Surgery Foot and Ankle Surgery; Visit Provider Orthopaedic Surgery Foot and Ankle Surgery
DX: S93.402A Sprain of unspecified ligament of left ankle, initial encounter (principal); M21.072 Valgus deformity, not elsewhere classified, left ankle; M11.272 Other chondrocalcinosis, left ankle and foot; M65.972 Unspecified synovitis and tenosynovitis, left ankle and foot; X58.XXXA Exposure to other specified factors, initial encounter
CPT/HCPCS: 73700